=== PATIENT | male | born 1940 | race Caucasian/White ===

== ENCOUNTER 2018-06-17 21:31 | Emergency (ER) | payer MEDICARE, OTHER, SELFPAY ==
[2018-06-17 22:01] VITALS: BP 135/76; PULSE 93; RESP 20; TEMP 36.8; O2SAT 95; BMI 30.1
--- NOTE | 2018-06-17 22:07 | DI.CT.S_ITS ---
PROCEDURE: CT ABDOMEN PELVIS W CON INDICATIONS: Left upper/lower quad pain, started 24 hours ago. ? fever TECHNIQUE: After the administration of intravenous contrast, 5 mm thick sections acquired from the diaphragm to the symphysis. 5 mm coronal and sagittal reformats were acquired. For radiation dose reduction, the following was used: automated exposure control, adjustment of mA and/or kV according to patient size. COMPARISON: None. FINDINGS: Image quality: Excellent. ABDOMEN: Lung bases: There is a calcified granuloma in the right lower lobe. Bibasilar atelectasis. Heart size is normal. There is a moderate-sized hiatal hernia. Solid organs: Liver is normal in size and enhancement. Gallbladder contains multiple gallstones. Biliary system is non dilated. Pancreas enhances normally. Spleen is normal in size and enhancement. No adrenal nodules. Kidneys demonstrate normal size and enhancement, without hydronephrosis. Peritoneum and bowel: There is a thickwalled cavity in the left upper quadrant adjacent to a loop of jejunum suspicious for the small bowel diverticulum (series 2 image 44). Mild dilation of small bowel loops in the left upper quadrant. Distally, small bowel loops are normal in caliber. Colon loops demonstrate normal wall thickness and caliber with abundant stool and bowel gas. No free fluid or air. Nodes and vessels: No retroperitoneal or mesenteric adenopathy by size criteria. Aorta and inferior vena cava are normal in size. Miscellaneous: A small fat containing ventral hernia is noted. PELVIS: Genitourinary: Bladder wall thickness is normal. Prostate is enlarged. Miscellaneous: No inguinal hernias or adenopathy. Bones: No suspicious bony lesions. No vertebral body compression fractures. IMPRESSION: 1. A thickwalled cavity is seen in the left upper quadrant adjacent to a loop of jejunum suspicious for a small bowel diverticulum. A differential diagnosis is contained perforation from perforated diverticulum but a neoplastic process is not excluded. No free fluid or free air. Small bowel loops in the left upper quadrant are slightly prominent and distal small bowel are normal in caliber, suggesting the possibility of partial or early small bowel obstruction. Recommend clinical correlation. 2. Cholelithiasis. 3. A moderate size hiatal hernia. 4. Enlarged prostate. 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 Dictated by: Sebas Swartz M.D. on 06/18/2018 at 7:42 Transcribed by: ROMA on 06/18/2018 at 7:54 Approved by: Sebas Swartz M.D. on 06/18/2018 at 8:46
[2018-06-17 22:14] LABS: Add Manual Diff / Slide Review NO; Basophils Percent Auto 0.7 % (0-2); Eosinophils Percent Auto 1.1 % (2-4); Hemoglobin 13.4 g/dL (13.5-17.5); Mean Corpuscular HGB Conc 32.6 % (30-36); Mean Corpuscular Hemoglobin 27.8 PG (26-34); Mean Corpuscular Volume 85.4 fL (80-100); Monocytes Percent Auto 3.5 % (3-14); Neutrophils Absolute Auto 14600 /uL (3000-5900); Neutrophils Percent Auto 90.7 % (50-75); Platelet Count 421 X10^3/uL (150-400); Red Blood Cell Count 4.81 X10^6/uL (4.5-5.9); Red Cell Distribution Width 20.4 % (11.6-14.8); White Blood Cell Count 16.1 X10^3/uL (4.5-11.0)
[2018-06-17 22:18] LABS: Alanine Aminotransferase 22 IU/L (21-72); Albumin 4.2 g/dL (3.5-5.0); Albumin Globulin Ratio 1.8 (1.0-2.8); Alkaline Phosphatase 47 U/L (38-126); Aspartate Aminotransferase 33 IU/L (17-59); BUN Creatinine Ratio 20.8 (6-22); Bilirubin Total 1.2 mg/dL (0.2-1.3); Blood Urea Nitrogen 25 mg/dL (9-20); Carbon Dioxide 24 mmol/L (22-32); Chloride 105 mmol/L (98-107); Estimated Glomerular Filt Rate 58.9 mL/min (>60); Globulin 2.4 g/dL (1.7-4.1); Glucose 128 mg/dL (80-110); HEMOLYSIS 16 (0-50); Lipase 27 U/L (23-300); Potassium 4.1 mmol/L (3.4-5.1); Sodium 140 mmol/L (137-145); Total Protein 6.6 g/dL (6.3-8.2)
--- NOTE | 2018-06-17 22:24 | ED_ITS ---
HPI - Abdominal Pain General Chief Complaint: Abdominal Pain Stated Complaint: ABD PAIN FEVER 100.5 Time Seen by Provider: 06/17/18 21:54 Source: patient and family ( ) Mode of arrival: ambulatory Limitations: no limitations History of Present Illness HPI narrative: this is a 78-year-old male comes to the emergency department with complaint of Abdominal pain. Patient states that started yesterday about 24 hr ago. He states it started about very heavy salt move loopy get up on its side. He states that movement is not worse with pain, sitting upper flexing does not seem to make a or side bending does not seem to make much difference. He states that pain is mostly on the left side. He has had no vomiting, did temperature a 100.5? at home although here was normal, no dysuria , no urgency. No diarrhea or constipation. He has not had similar symptoms in the past. has a history of mitral valve replacement, the takes medication for blood pressure and dyslipidemia. He drinks 2-3 alcoholic drinks daily. Related Data Previous Rx's Medication Instructions Recorded amoxicillin-pot clavulanate 1 tab PO Q12H #20 tab 06/18/18 [Augmentin] Allergies Allergy/AdvReac Type Severity Reaction Status Date / Time No Known Drug Allergies Allergy Verified 06/17/18 22:07 Review of Systems Review of Systems All systems reviewed & are unremarkable except as noted in HPI and below Constitutional Denies anorexia, Denies chills, Denies fever(s) and Denies malaise Cardiovascular Denies chest pain and Denies dyspnea Respiratory Denies dyspnea Gastrointestinal Gastrointestinal: Reports abdominal pain, Denies melena, Denies hematochezia, Denies change in bowel habits, Denies constipation, Denies diarrhea, Denies nausea and Denies vomiting Genitourinary Denies hematuria, Denies difficulty urinating, Denies flank pain, Denies testicular pain, Denies urinary frequency, Denies urinary incontinence and Denies urinary urgency Musculoskeletal Denies back pain PFSH Medical History Dyslipidemia (Acute) Hypertension (Acute) Surgical History H/O mitral valve repair (Acute) Social History Smoking Status: Never smoker Exam Narrative Exam Narrative: GENERAL: Alert and oriented x three, well-nourished, well- appearing male in mild distress. HEENT: Head normocephalic, atraumatic, EOMI, pupils reactive, face symmetric, moist mucous membranes NECK: Supple, full range of motion CARDIOVASCULAR: Regular rate and rhythm without murmurs, rubs or gallops. RESPIRATORY: Breath sounds equal bilaterally, no wheezes rales or rhonchi. ABDOMEN: Soft, Mild left upper quadrant and very mild left lower quadrant tenderness. Normoactive bowel sounds all 4 quadrants. No guarding or rebound, rigidity, no mass : No CVA tenderness EXTREMITIES: Normal range of motion, no clubbing or edema. Neurovascularly intact NEUROLOGICAL: Cranial nerves II through XII grossly intact. Moving all extremities SKIN: Warm, dry, no petechiae, no rashes or lesions. Initial Vital Signs Initial Vital Signs: Vital Signs Temperature 98.3 F 06/17/18 22:01 Pulse Rate 93 H 06/17/18 22:01 Respiratory Rate 20 06/17/18 22:01 Blood Pressure 135/76 06/17/18 22:01 Pulse Oximetry 95 06/17/18 22:01 Course Orders Ordered: ED Orders 06/17/18 21:50 Complete Blood Count AUTO DIFF Stat Comprehensive Metabolic Panel Stat Lipase Stat 06/17/18 22:07 CT abdomen pelvis w con Stat Discontinued Medications Amoxicillin/Clavulanate Potassium (Augmentin 875-125 Mg) 1 tab PO NOW ONE Stop: 06/18/18 00:06 Last Admin: 06/18/18 00:10 Dose: 1 tab Sodium Chloride (Normal Saline 0.9%) 1,000 mls @ 150 mls/hr IV CONT KASSI Last Infusion: 06/18/18 00:10 Dose: 0 mls/hr Admin: 06/17/18 22:53 Dose: 150 mls/hr Morphine Sulfate (Morphine) 2 mg IV NOW ONE Stop: 06/17/18 21:52 Last Admin: 06/17/18 22:29 Dose: Vital Signs - 8 hr 06/17/18 22:01 06/18/18 00:31 Temperature 98.3 F Pulse Rate 93 H 89 Respiratory Rate 20 18 Blood Pressure 135/76 126/61 Pulse Oximetry 95 98 MDM - Abdominal Pain Lab Data Result diagrams: 06/17/18 21:50 06/17/18 21:50 Lab Results 06/17/18 06/17/18 Range/Units 21:50 21:50 WBC 16.1 H (4.5-11.0) X10^3/uL RBC 4.81 (4.5-5.9) X10^6/uL Hgb 13.4 L (13.5-17.5) g/dL Hct 41.0 (41-53) % MCV 85.4 (80-100) fL MCH 27.8 (26-34) PG MCHC 32.6 (30-36) % RDW 20.4 H (11.6-14.8) % Plt Count 421 H (150-400) X10^3/uL Neut % (Auto) 90.7 H (50-75) % Lymph % (Auto) 4.0 L (25-40) % Jerome % (Auto) 3.5 (3-14) % Eos % (Auto) 1.1 L (2-4) % Baso % (Auto) 0.7 (0-2) % Neut # (Auto) 14956 H (6168-4157) /uL RBC Morphology See below Anisocytosis 3+ H Sodium 140 (137-145) mmol/L Potassium 4.1 (3.4-5.1) mmol/L Chloride 105 (98-107) mmol/L Carbon Dioxide 24 (22-32) mmol/L BUN 25 H (9-20) mg/dL Creatinine 1.20 (0.66-1.25) mg/dL Estimated GFR 58.9 L (>60) mL/min BUN/Creatinine Ratio 20.8 (6-22) Glucose 128 H (80-110) mg/dL Calcium 9.0 (8.4-10.2) mg/dL Total Bilirubin 1.2 (0.2-1.3) mg/dL AST 33 (17-59) IU/L ALT 22 (21-72) IU/L Alkaline Phosphatase 47 (38-126) U/L Total Protein 6.6 (6.3-8.2) g/dL Albumin 4.2 (3.5-5.0) g/dL Globulin 2.4 (1.7-4.1) g/dL Albumin/Globulin Ratio 1.8 (1.0-2.8) Lipase 27 (23-300) U/L Imaging Data CT scan - abdomen: Radiologist's impression: Dilated small bowel loops in left abdomen leading to transition point of wall thickening and luminal narrowing of small bowel in the lower left abdomen. As some feculent contents and small bowel which may be a consequence of point of obstruction however there is wall thickening and martha enteric stranding. This may represent inflamed small bowel diverticulum. Findings could be secondary to enteritis. Neoplasm not excluded. Follow-up suggested. Cholelithiasis without findings to suggest cholecystitis. Hiatal hernia. Age-related large amount of prostate gland. Anterior abdominal wall hernia containing only fat. MDM Narrative Medical decision making narrative: discussed with patient plan for imaging he is tender in the left upper little bit the left lower quadrant. He could potentially have a diverticulitis or other infectious cause. plan to check urine for infection although he has not been having any urinary symptoms. Patient's white count is elevated at 16 there is an area that may be an inflamed small bowel diverticulum versus enteritis, there is some question about of joint decreasing caliber of the small bowel but patient clinically is not having any signs or symptoms of bowel obstruction or partial bowel obstruction. Discussed with patient we will treat similar to a diverticulitis, we did also discuss the need follow-up to rule out other causes such as neoplasm. Discharge Plan Departure Patient Disposition: Home Clinical Impression: Inflammation of small intestine Discharge Date/Time: 06/18/18 00:31 Interventions: ED Discharge Assessment Last Done: 06/18/18 00:31 Instructions: Diverticulitis Activity Restrictions/Additional Instructions: Your imaging today shows some changes of the abdomen that are similar to diverticulitis although this is in the small and not the large bowel, there are also changes of questionable bowel obstruction but clinically you do not have an obstruction. There is also changes with your lab work that supports infection. Take antibiotics until they are completely gone. Call your primary care physician to set up follow-up this week for recheck. Discussed her CT findings they way wish to continue with further imaging to evaluate other causes. Return to the emergency department for persistent fevers, vomiting, if you are not having any bowel movements and not passing gas, increasing or new abdominal pain or other new or concerning symptoms. Prescriptions: New amoxicillin-pot clavulanate [Augmentin] 875-125 mg tablet 1 tab PO Q12H Qty: 20 RF: 0
[2018-06-17] MEDS: SODIUM CHLORIDE 0.9% 1,000 ML 150 ML IV (22:53)
[2018-06-17 23:29] LABS: Anisocytosis 3+
[2018-06-18] MEDS: AMOXICILLIN/CLAV 875/125 MG 1 TAB PO (00:10)
[2018-06-18 00:31] VITALS: BP 126/61; PULSE 89; RESP 18; O2SAT 98
== END 2018-06-18 00:31 | disposition home or self-care (01) ==
PROVIDERS: Emergency Provider Emergency Medicine
DX: K52.9 Noninfective gastroenteritis and colitis, unspecified (principal)
CPT/HCPCS: 36591; 74177; 80053; 83690; 85025; 96360; 99283; 99285; Q9967

== ENCOUNTER → 2018-07-08 09:34 | Outpatient (CLI) | payer MEDICARE, OTHER, SELFPAY ==
[2018-07-08 09:49] LABS: Platelet Count 405 X10^3/uL (150-400)
[2018-07-08 10:38] LABS: Erythrocyte Sedimentation Rate 7 MM/HR (0-15)
[2018-07-08 10:40] LABS: C-Reactive Protein Quant 0.5 mg/dL (<1.0)
== END ==
PROVIDERS: PCP Internal Medicine; Visit Provider Ophthalmology
DX: H53.122 Transient visual loss, left eye (principal)
CPT/HCPCS: 36415; 85049; 85651; 86140

== ENCOUNTER → 2018-07-11 14:37 | Outpatient (CLI) | payer MEDICARE, OTHER, SELFPAY ==
--- NOTE | 2018-07-11 | DI.US.S_ITS ---
PROCEDURE: US CAROTID DOPPLER BI INDICATIONS: TRANSIENT VISION LOSS TECHNIQUE: Color and pulse Doppler interrogation was performed of both carotid systems, with image documentation and velocity measurements. COMPARISON: None. FINDINGS: Stenosis calculations are based on SRU (Society of Radiologists in Ultrasound) criteria. Right side: Brachial blood pressure: 102/61 mm Hg. Common carotid artery peak systolic velocity: 89 cm/sec. Internal carotid artery peak systolic velocity: 95 cm/sec. Internal carotid artery end diastolic velocity: 26 cm/sec. External carotid artery peak systolic velocity: 88 cm/sec. ICA/CCA peak systolic ratio: 1.1. Estes scale imaging description: Moderate scattered plaque. Percent internal carotid artery stenosis: Less than 50% stenosis. Vertebral artery: Flow direction is antegrade. Left side: Brachial blood pressure: 109/65 mm Hg. Common carotid artery peak systolic velocity: 91 cm/sec. Internal carotid artery peak systolic velocity: 134 cm/sec. Internal carotid artery end diastolic velocity: 20 cm/sec. External carotid artery peak systolic velocity: 97 cm/sec. ICA/CCA peak systolic ratio: 1.5. Estes scale imaging description: Moderate scattered plaque. Percent internal carotid artery stenosis: 50-69% stenosis. Vertebral artery: Not visualized. IMPRESSION: 1. 50-69% left internal carotid artery stenosis. 2. Less than 50% right internal carotid artery stenosis. Dictated by: Jeffrey Lawler [facility] Interpreted: John Reynolds MD on 07/11/2018 at 16:00 Approved by: John Reynolds M.D. on 07/11/2018 at 16:43
== END ==
PROVIDERS: Family Provider Internal Medicine Cardiovascular Disease; PCP Internal Medicine; Visit Provider Ophthalmology
DX: I65.23 Occlusion and stenosis of bilateral carotid arteries (principal); H53.129 Transient visual loss, unspecified eye
CPT/HCPCS: 93880

== ENCOUNTER → 2018-07-17 07:35 | Outpatient (CLI) | payer MEDICARE, OTHER, SELFPAY ==
[2018-07-17 09:34] LABS: Alanine Aminotransferase 22 IU/L (21-72); Aspartate Aminotransferase 35 IU/L (17-59); BUN Creatinine Ratio 17.7 (6-22); Blood Urea Nitrogen 23 mg/dL (9-20); Calcium 9.4 mg/dL (8.4-10.2); Carbon Dioxide 29 mmol/L (22-32); Chloride 102 mmol/L (98-107); Cholesterol 124 mg/dL (140-199); Estimated Glomerular Filt Rate 53.7 mL/min (>60); Glucose 89 mg/dL (80-110); HDL Cholesterol 42 mg/dL (40-60); HEMOLYSIS < 15 (0-50); LDL Cholesterol Calculated 62 mg/dL (<100); Potassium 4.7 mmol/L (3.4-5.1); Sodium 142 mmol/L (137-145); Triglycerides 98 mg/dL (35-150)
== END ==
PROVIDERS: PCP Internal Medicine; Visit Provider Internal Medicine
DX: G45.9 Transient cerebral ischemic attack, unspecified (principal); I10 Essential (primary) hypertension
CPT/HCPCS: 36415; 80048; 80061; 84450; 84460

== ENCOUNTER → 2018-07-24 07:12 | Outpatient (CLI) | payer MEDICARE, OTHER, SELFPAY ==
--- NOTE | 2018-07-24 | DI.MRI.S_ITS ---
PROCEDURE: MR STROKE Pre- and post-contrast brain MRI, non-contrast brain MR angiogram, pre- and postcontrast neck MR angiogram INDICATIONS: Transient cerebral ischemic attack, unspecified TECHNIQUE: Brain: Noncontrast axial T1 spin echo, axial T2 fast spin echo, sagittal and axial FLAIR, coronal T2 fast spin echo, axial gradient echo, axial diffusion and ADC through the brain. After the administration of contrast, axial 3D VIBE of the cranial vasculature and brain. Brain MRA: Non-contrast 3-D time of flight MR angiogram, with multiple lfrnrgu-ccssgqkij-xxyutfocdf (MIP) reformats performed. Neck MRA: Axial and sagittal TruFISP through the neck. Coronal dynamic MR angiogram during administration of contrast in the arterial and venous phases, with 3-dimenstional tvdhoag-qcsxrgkjm-dtjdydshvk (MIP) reformats constructed from subtraction images. COMPARISON: [facility], , CAROTID DOPPLER BI, 07/11/2018, 14:55. FINDINGS: Image quality: Excellent. BRAIN: CSF spaces: Ventricles are normal in size and shape. Basal cisterns are patent. No extra-axial fluid collections. Brain: No intracranial bleeds or mass effects. Estes-white matter interface is normal. There is mild cerebral volume loss. Small foci of T2 hyperintensity in the periventricular and subcortical white matter are compatible with chronic small vessel ischemic changes. Diffusion weighted images show no acute ischemic insults. Brainstem appears normal. Normal intravascular flow voids are present. No abnormal intracranial enhancement. Skull and face: Calvarial marrow signal is normal. Orbits appear normal. Sinuses: Sinuses and mastoids are clear. BRAIN MR ANGIOGRAM: Anterior circulation: Intracranial internal carotid arteries are normal in size and enhancement. The flow within the paired anterior cerebral arteries is normal and symmetric. The flow within the middle cerebral arteries is normal and symmetric. The anterior communicating artery is seen. No stenoses, occlusions, or aneurysms. Posterior circulation: The visualized portions of the vertebral arteries demonstrate normal caliber, and join to form a normal appearing basilar artery. The flow within the posterior cerebral arteries is normal and symmetric. No stenoses, occlusions, or aneurysms. NECK MR ANGIOGRAM: Carotids: Great vessels demonstrate a conventional anatomy as they arise from the aortic arch. The origins of the common carotid arteries appear patent. The calibers and courses of both common carotid arteries are normal. There is approximately 50% stenosis in the proximal left internal cardiac artery just down the bifurcation. Approximately 20-30% stenosis of the right proximal internal carotid artery. The internal carotid arteries demonstrate normal course and caliber. Posterior circulation: The origins of the vertebral arteries appear patent. More superior portions of both vertebral arteries demonstrate normal course and caliber, and join to form a normal appearing basilar artery. Miscellaneous: Subclavian arteries appear patent. Pre-contrast images through the neck show no soft tissue abnormalities. IMPRESSION: BRAIN MRI: 1. No acute intracranial abnormalities. 2. Mild cerebral volume loss and chronic microvascular ischemic changes. BRAIN MR ANGIOGRAM: 1. No high-grade stenosis or occlusion in anterior circulations. 2. No high-grade stenosis or occlusion in posterior circulations. NECK MR ANGIOGRAM: 1. Approximately 50% stenosis of the proximal left internal carotid artery just beyond the carotid bifurcation. 2. Approximately 20-30% stenosis of the proximal right internal carotid artery. 3. No high-grade stenosis or occlusion in cervical vertebral arteries bilaterally. Dictated by: Sebas Swartz M.D. on 07/24/2018 at 11:40 Transcribed by: ROMA on 07/24/2018 at 11:52 Approved by: Sebas Swartz M.D. on 07/26/2018 at 10:49
== END ==
PROVIDERS: Family Provider Internal Medicine Cardiovascular Disease; PCP Internal Medicine; Visit Provider Internal Medicine
DX: G45.9 Transient cerebral ischemic attack, unspecified (principal); I65.23 Occlusion and stenosis of bilateral carotid arteries
CPT/HCPCS: 70553

== ENCOUNTER → 2019-02-13 08:19 | Outpatient (CLI) | payer MEDICARE, OTHER, SELFPAY ==
[2019-02-13 09:16] LABS: Cholesterol 127 mg/dL (140-199); HDL Cholesterol 35 mg/dL (40-60); LDL Cholesterol Calculated 62 mg/dL (<100); Triglycerides 148 mg/dL (35-150)
== END ==
PROVIDERS: Family Provider Internal Medicine; PCP Internal Medicine; Visit Provider Internal Medicine Cardiovascular Disease
DX: E78.5 Hyperlipidemia, unspecified (principal)
CPT/HCPCS: 36415; 80061

== ENCOUNTER → 2019-07-09 10:55 | Outpatient (CLI) | payer MEDICARE, OTHER, SELFPAY ==
[2019-07-09 12:33] LABS: BUN Creatinine Ratio 15.9 (6-22); Blood Urea Nitrogen 27 mg/dL (9-20); Calcium 9.6 mg/dL (8.4-10.2); Carbon Dioxide 28 mmol/L (22-32); Chloride 104 mmol/L (98-107); Estimated Glomerular Filt Rate 39.3 mL/min (>60); Glucose 98 mg/dL (80-110); HEMOLYSIS < 15 (0-50); Potassium 5.3 mmol/L (3.4-5.1); Sodium 140 mmol/L (137-145)
[2019-07-09 13:00] LABS: Prostate Specific Antigen Scrn 2.59 ng/mL (0.1-4.0)
== END ==
PROVIDERS: Family Provider Internal Medicine; PCP Internal Medicine; Visit Provider Internal Medicine
DX: Z12.5 Encounter for screening for malignant neoplasm of prostate (principal); I10 Essential (primary) hypertension
CPT/HCPCS: 36415; 80048; G0103

== ENCOUNTER → 2020-05-11 09:20 | Outpatient (CLI) | payer MEDICARE, OTHER, SELFPAY ==
--- NOTE | 2020-05-11 | DI.US.S_ITS ---
PROCEDURE: US CAROTID DOPPLER BI INDICATIONS: OCCLUSION AND STENOSIS OF BILATERAL CAROTID ARTERIES TECHNIQUE: Color and pulse Doppler interrogation was performed of both carotid systems, with image documentation and velocity measurements. COMPARISON: [facility], US, US CAROTID DOPPLER BI, 07/11/2018, 14:55. [facility], MR, MR STROKE, 07/24/2018, 8:00. FINDINGS: Stenosis calculations are based on SRU (Society of Radiologists in Ultrasound) criteria. The flow velocities and the arterial waveforms are normal within both carotid arterial systems. Atherosclerotic plaque is seen on both sides. The estimated degree of internal carotid artery stenosis is less than 50%. Antegrade flow is confirmed within both vertebral arteries. IMPRESSION: No hemodynamically significant stenosis is seen. The previously seen mild stenosis of the left internal carotid artery is no longer seen by velocity criteria. Atherosclerotic plaque is noted bilaterally. Dictated by: Gasper Ferrera M.D. on 05/11/2020 at 10:00 Approved by: Gasper Ferrera M.D. on 05/11/2020 at 10:01
== END ==
PROVIDERS: Family Provider Internal Medicine; PCP Internal Medicine; Referring Provider Internal Medicine Cardiovascular Disease; Visit Provider Internal Medicine Cardiovascular Disease
DX: I65.23 Occlusion and stenosis of bilateral carotid arteries (principal)
CPT/HCPCS: 93880

== ENCOUNTER → 2020-06-25 08:45 | Outpatient (CLI) | payer MEDICARE, OTHER, SELFPAY ==
[2020-06-25 10:27] LABS: Alanine Aminotransferase 10 IU/L (<50); Albumin 3.7 g/dL (3.5-5.0); Albumin Globulin Ratio 1.5 (1.0-2.8); Alkaline Phosphatase 58 U/L (38-126); Aspartate Aminotransferase 33 IU/L (17-59); BUN Creatinine Ratio 16.9 (6-22); Bilirubin Total 1.2 mg/dL (0.2-1.3); Blood Urea Nitrogen 24 mg/dL (9-20); Calcium 9.1 mg/dL (8.4-10.2); Carbon Dioxide 30 mmol/L (22-32); Chloride 104 mmol/L (98-107); Cholesterol 105 mg/dL (140-199); Estimated Glomerular Filt Rate 48.2 mL/min (>60); Globulin 2.4 g/dL (1.7-4.1); Glucose 100 mg/dL (80-110); HDL Cholesterol 34 mg/dL (40-60); HEMOLYSIS < 15 (0-50); LDL Cholesterol Calculated 50 mg/dL (<100); Potassium 4.5 mmol/L (3.4-5.1); Sodium 136 mmol/L (137-145); Total Protein 6.1 g/dL (6.3-8.2); Triglycerides 105 mg/dL (35-150)
[2020-06-26 07:49] LABS: PSA Free % 30.5 % (.)
== END ==
PROVIDERS: Family Provider Internal Medicine; PCP Internal Medicine; Referring Provider Internal Medicine; Visit Provider Internal Medicine
DX: I10 Essential (primary) hypertension (principal); E78.5 Hyperlipidemia, unspecified; Z12.5 Encounter for screening for malignant neoplasm of prostate
CPT/HCPCS: 36415; 80053; 80061; 84153; 84154

== ENCOUNTER → 2021-11-14 09:44 | Outpatient (CLI) | payer MEDICARE, OTHER, SELFPAY ==
[2021-11-14 12:43] LABS: COVID19 -Nasal RAPID Negative (Negative)
== END ==
PROVIDERS: Family Provider Internal Medicine; PCP Internal Medicine; Visit Provider Family Medicine Sleep Medicine
DX: Z20.822 Contact with and (suspected) exposure to COVID-19 (principal)
CPT/HCPCS: 87635; C9803

== ENCOUNTER 2021-11-15 09:27 | Day surgery (SDC) | payer MEDICARE, OTHER, SELFPAY ==
[2021-11-15] MEDS: PROPARACAINE 0.5% OPHTH SOL 2 DROPS EYE-OP (10:05)
[2021-11-15 10:11] VITALS: BP 136/86; PULSE 60; RESP 18; TEMP 36.4; O2SAT 100; BMI 28.7
[2021-11-15] MEDS: CATARACT EYE COMPOUND (10 DROPS/SYRINGE) 3 DROPS EYE-OP (10:15)
--- NOTE | 2021-11-15 10:45 | PM.PREOP ---
Pre-operative Note Interval Note History & Physical reviewed/Exam performed by Physician: Yes Changes to H&P: No
--- NOTE | 2021-11-15 10:45 | PM.OP.1 ---
Operative Date/Time/Diagnoses Pre-op diagnosis: Nuclear cataract right eye Procedure & Clinicians Procedure: Cataract Surgery Same procedure as scheduled: Yes Surgeon: Omi Goodrich Anesthesia Type: MAC +/- and Sedation Operative Notes Procedure in detail: Patient brought to the operating suite. Tetracaine drops placed in the right eye. Patient was prepped and draped in sterile manner. Wire lid speculum was placed in the eye. Betadine drops were placed on the eye. This was irrigated. Lidocaine jelly was placed on the eye. A paracentesis port was created with a side-port blade. 0.1 mL 1% preservative free lidocaine was injected into the anterior chamber. The anterior chamber was deepened with viscoelastic. 2.6 mm keratome was used to create a temporal clear corneal incision. Cystotome and Utrata forceps were used to create continuous tear capsulorrhexis. Balanced salt solution was used to hydro dissect the nucleus. The phacoemulsification handpiece was inserted and the nucleus was removed using the stop and chop technique. The irrigation aspiration handpiece was inserted and the remaining cortex was removed. Anterior chamber was deepened with viscoelastic. An Haider DIB00 intraocular lens with a power of 21.5 was injected into the capsular bag. Irrigation aspiration handpiece was inserted and the remaining viscoelastic was removed. Incision was hydrated with balanced salt solution and found to be leak free with pressure with Weck-Stephanie sponges. 0.1 mL Vigamox injected anterior chamber. 0.3 mL Kenalog 10 mg was injected subconjunctivally. Lid speculum was removed. The patient left the operating room in excellent condition. Complications: none Post-operative Condition: stable Disposition: same day surgery
--- NOTE | 2021-11-15 11:00 | SUR.OPER ---
Supine on eye stretcher, head on extension cradle secured with tape. Arms tucked at sides with blanket. Pillow under knees.
[2021-11-15] MEDS: LIDOCAINE 2% (GLYDO) 6 ML GEL TOP (11:08)
[2021-11-15] MEDS: PHENYLEPHRINE/LIDOCAINE VIAL (OR) 0.2 ML EYE-OP (11:08)
[2021-11-15] MEDS: MOXIFLOXACIN INJ 4 MG/0.8 ML VIAL 0.5 MG EYE-OP (11:08)
[2021-11-15] MEDS: HYALURONATE SODIUM 30 MG-10 MG/ML SYRINGES 1 BOX INTRAOCULA (11:08)
[2021-11-15] MEDS: TETRACAINE 0.5% OPHTH DROPS 4 ML 2 DROPS EYE-OP (11:08)
[2021-11-15] MEDS: BALANCED SALT IRRIG SOLN NO.2 500 ML, EPINEPHrine 1 MG IRR (11:09)
[2021-11-15] MEDS: TRIAMCINOLONE 50 MG/5 ML VIAL INJ (11:09)
[2021-11-15 11:29] VITALS: BP 97/59; PULSE 56; RESP 16; TEMP 36.3; O2SAT 98
== END 2021-11-15 11:35 | disposition home or self-care (01) ==
PROVIDERS: Family Provider Internal Medicine; PCP Internal Medicine; Referring Provider Ophthalmology; Visit Provider Ophthalmology
PROC: (CPT 66984; principal; 2021-11-15 10:45)
DX: H25.11 Age-related nuclear cataract, right eye (principal); I10 Essential (primary) hypertension; I25.10 Atherosclerotic heart disease of native coronary artery without angina pectoris; E66.9 Obesity, unspecified
CPT/HCPCS: 66984; J0171; J2250; J3301

== ENCOUNTER → 2022-02-08 14:10 | Outpatient (CLI) | payer MEDICARE, OTHER, SELFPAY ==
[2022-02-08 14:58] LABS: Add Manual Diff / Slide Review NO; Basophils Absolute Auto 100 /uL (0-100); Basophils Percent Auto 1.3 % (0-2); Eosinophils Absolute Auto 200 /uL (0-450); Eosinophils Percent Auto 2.5 % (2-4); Hematocrit 31.7 % (41-53); Hemoglobin 10.6 g/dL (13.5-17.5); Lymphocytes Absolute Auto 700 /uL (1100-4500); Lymphocytes Percent Auto 8.6 % (25-40); Mean Corpuscular HGB Conc 33.6 % (30-36); Mean Corpuscular Hemoglobin 28.7 PG (26-34); Mean Corpuscular Volume 85.3 fL (80-100); Monocytes Absolute Auto 400 /uL (0-900); Monocytes Percent Auto 4.7 % (3-14); Neutrophils Absolute Auto 6300 /uL (1500-7000); Neutrophils Percent Auto 82.9 % (50-75); Platelet Count 348 X10^3/uL (150-400); Red Blood Cell Count 3.71 X10^6/uL (4.5-5.9); Red Cell Distribution Width 22.5 % (11.6-14.8); White Blood Cell Count 7.6 X10^3/uL (4.5-11.0)
[2022-02-08 15:16] LABS: Alanine Aminotransferase 11 IU/L (<50); Albumin 4.1 g/dL (3.5-5.0); Albumin Globulin Ratio 2.1 (1.0-2.8); Alkaline Phosphatase 63 U/L (38-126); Aspartate Aminotransferase 43 IU/L (17-59); BUN Creatinine Ratio 15.7 (6-22); Bilirubin Total 1.1 mg/dL (0.2-1.3); Blood Urea Nitrogen 26 mg/dL (9-20); Calcium 8.8 mg/dL (8.4-10.2); Carbon Dioxide 28 mmol/L (22-32); Chloride 105 mmol/L (98-107); Estimated Glomerular Filt Rate 41 mL/min (>60); Glucose 96 mg/dL (80-110); HEMOLYSIS < 15 (0-50); Potassium 4.8 mmol/L (3.4-5.1); Sodium 138 mmol/L (137-145); Total Protein 6.1 g/dL (6.3-8.2)
[2022-02-08 15:25] LABS: Poikilocytosis 1+
[2022-02-08 15:29] LABS: Anisocytosis 2+; Schistocytes 2+
[2022-02-08 15:54] LABS: Creatinine Urine Random 73.6 mg/dL; Protein (Total) Urine Random 9 mg/dL (0-12); Protein Creatinine Ratio Urine 0.12 GRAM/24H
[2022-02-08 16:23] LABS: Appearance Urine UA CLEAR; Bilirubin Urine UA NEGATIVE (NEGATIVE); Color Urine UA YELLOW; Glucose Urine UA NEGATIVE (Negative); Ketones Urine UA NEGATIVE (NEGATIVE); Leukocyte Esterase Urine UA NEGATIVE (NEGATIVE); Nitrite Urine UA NEGATIVE (Negative); Occult Blood Urine UA NEGATIVE (Negative); Protein Urine UA NEGATIVE (Negative); Urobilinogen Urine UA 0.2 E.U./dL (0.2); pH Urine UA 5.5 (4.5-8.0)
[2022-02-08 16:47] LABS: Amorphous Sediment Urine 1+; Bacteria Urine None Seen; Culture Indicated Urine Cult Not Indicated; RBC Urine None Seen (0-5/HPF); Squamous Epithelial Cell Urine 0-1 /HPF (0-5/HPF); WBC Urine 0-1/HPF (0-5/HPF)
== END ==
PROVIDERS: Family Provider Internal Medicine; PCP Internal Medicine; Referring Provider Internal Medicine Nephrology; Visit Provider Internal Medicine Nephrology
DX: N18.31 Chronic kidney disease, stage 3a (principal)
CPT/HCPCS: 36415; 80053; 81001; 82570; 84156; 85025

== ENCOUNTER → 2022-06-08 10:29 | Outpatient (CLI) | payer MEDICARE, OTHER, SELFPAY ==
[2022-06-08 11:41] LABS: BUN Creatinine Ratio 17.3 (6-22); Blood Urea Nitrogen 26 mg/dL (9-20); Calcium 8.8 mg/dL (8.4-10.2); Carbon Dioxide 29 mmol/L (22-32); Chloride 105 mmol/L (98-107); Estimated Glomerular Filt Rate 47 mL/min (>60); Glucose 95 mg/dL (80-110); HEMOLYSIS 16 (0-50); Potassium 4.7 mmol/L (3.4-5.1); Sodium 138 mmol/L (137-145)
== END ==
PROVIDERS: PCP Internal Medicine; Referring Provider Internal Medicine Cardiovascular Disease; Visit Provider Internal Medicine Cardiovascular Disease
DX: R25.2 Cramp and spasm (principal)
CPT/HCPCS: 36415; 80048; 83735

== ENCOUNTER → 2022-07-07 07:42 | Outpatient (CLI) | payer MEDICARE, OTHER, SELFPAY ==
--- NOTE | 2022-07-07 | DI.ECHO.S_ITS ---
[facility] +---------+ : : [address] [place] : : : : [id number] : : : : Phone: [phone]+ Echocardiogram Report + + :Name: DEMETRICE DUMONT Study Date: 07/07/2022 Height: 72 in : :[facility] ReadingLocation: Weight: 212 lb : : Gender: Male BSA: 2.2 m2 : :: 1940 Age: 82 yrs BP: 142/76 mmHg: :Reason For Study: Mitral Valve- Regurgitation : :Ordering Physician: JOSH, : :JR Performed By: Wesley Neri : :Referring: JR MORENO : + + Interpretation Summary The left ventricle is mildly dilated. The ejection fraction is estimated to be 55-60%. Diastolic parameters suggest a pseudonormalization pattern, consistent with probable elevated filling pressures. No significant change in systolic or diastolic function from the previous study. The right ventricle is at the upper limits of normal in size. The right ventricular systolic function is normal. The mitral valve has been surgically repaired and an annuloplasty ring sewn in place. There is moderate mitral regurgitation. Compared to the prior echo study, there has been no change in the severity of mitral regurgitation. The IVC is of normal diameter and collapses greater than 50% with a sniff. This suggests a low right atrial pressure of 3 mm Hg. Procedure: A two-dimensional transthoracic echocardiogram with color flow and Doppler was performed. The study quality was technically adequate. Comparison is made with the echocardiogram of 03/17/2021. The patient was in normal sinus rhythm during the exam. Left Ventricle: The left ventricle is mildly dilated. Proximal septal thickening is noted. There is no echo evidence for significant left ventricular outflow tract obstruction. There is no thrombus. Left ventricular systolic function is normal. The ejection fraction is estimated to be 55-60%. There are no focal wall motion abnormalities. Diastolic parameters suggest a pseudonormalization pattern, consistent with probable elevated filling pressures. Right Ventricle: The right ventricle is at the upper limits of normal in size. The right ventricular systolic function is normal. Atria: Both atria are severely dilated. There has been no significant change since the previous study. The interatrial septum grossly appears intact with no obvious evidence for an atrial septal defect. Mitral Valve: An annuloplasty ring is noted in the mitral position. The mitral valve has been surgically repaired and an annuloplasty ring sewn in place. There is moderate mitral regurgitation. Compared to the prior echo study, there has been no change in the severity of mitral regurgitation. Aortic Valve: The aortic valve is trileaflet. The aortic valve is slightly calcified. There is no aortic valve stenosis. There is trace aortic regurgitation. Tricuspid Valve: The tricuspid valve is normal. There is mild tricuspid regurgitation. Pulmonary artery pressures cannot be estimated because of the lack of a measurable TR jet velocity. Compared to the prior echo exam, there has been no change in TR severity. Pulmonic Valve: The pulmonic valve is not well seen, but is grossly normal. There is mild pulmonic regurgitation. Great Vessels: The aortic root is normal size. The dimensions of the ascending aorta are normal. The IVC is of normal diameter and collapses greater than 50% with a sniff. This suggests a low right atrial pressure of 3 mm Hg. Pericardium/ Pleura There is no pericardial effusion. There is no pleural effusion. MMode/2D Measurements & Calculations LVIDd: 6.1 cm LVOT diam: 2.4 cm LVIDs: 4.0 cm Ao root diam: 3.6 cm FS: 34.8 % asc Aorta Diam: 3.2 cm IVSd: 1.1 cm LVPWd: 0.97 cm LV carrizales. diameter/BSA (cm/m^2): 2.8 LV sys. diameter/BSA (cm/m^2): 1.8 LA A2 area: 26.1 cm2 RA long axis: 6.5 cm LA A4 area: 32.9 cm2 RA area: 25.3 cm2 LA length (vol): 6.7 cm RA vol: 83.4 ml LA vol: 109.3 ml RA : 38.2 ml/m2 LA vol index: 50.1 ml/m2 TAPSE: 2.3 cm LVAd ap4: 38.9 cm2 LVAs ap4: 22.7 cm2 LVLs ap4: 7.8 cm LVAd ap2: 29.7 cm2 LVLd ap2: 8.5 cm Doppler Measurements & Calculations Ao V2 max: 151.9 cm/sec LVOT Max Brooks: 94.2 cm/sec Ao V2 mean: 108.9 cm/sec LV V1 max P.6 mmHg Ao max P.2 mmHg LV V1 VTI: 20.8 cm Ao mean P.2 mmHg LUZ(I,D): 3.1 cm2 Ao V2 VTI: 30.9 cm ULZ(V,D): 2.9 cm2 sev ratio: 0.67 LUZ indexed to BSA (cm^2/m^2): 1.4 MV E max brooks: 117.2 cm/sec SV(LVOT): 96.4 ml MV A max brooks: 88.4 cm/sec MV E/A: 1.3 Med Peak E' Brooks: 4.2 cm/sec E/E' med: 27.7 Lat Peak E' Brooks: 7.4 cm/sec E/E' lat: 15.9 E/e' average: 21.8 MV dec time: 0.20 sec Reading Physician:03:56 PM
== END ==
PROVIDERS: PCP Internal Medicine; Referring Provider Internal Medicine Cardiovascular Disease; Visit Provider Internal Medicine Cardiovascular Disease
DX: I08.1 Rheumatic disorders of both mitral and tricuspid valves (principal); Z98.890 Other specified postprocedural states
CPT/HCPCS: 93306

== ENCOUNTER → 2022-08-15 10:08 | Outpatient (CLI) | payer MEDICARE, OTHER, SELFPAY ==
[2022-08-15 12:15] LABS: BUN Creatinine Ratio 15.8 (6-22); Blood Urea Nitrogen 24 mg/dL (9-20); Calcium 8.9 mg/dL (8.4-10.2); Carbon Dioxide 27 mmol/L (22-32); Chloride 105 mmol/L (98-107); Estimated Glomerular Filt Rate 46 mL/min (>60); Glucose 96 mg/dL (80-110); HEMOLYSIS < 15 (0-50); Sodium 138 mmol/L (137-145)
[2022-08-15 12:17] LABS: Hematocrit 33.6 % (41-53); Hemoglobin 10.9 g/dL (13.5-17.5)
== END ==
PROVIDERS: PCP Internal Medicine; Referring Provider Internal Medicine Nephrology; Visit Provider Internal Medicine Nephrology
DX: N18.31 Chronic kidney disease, stage 3a (principal)
CPT/HCPCS: 36415; 80048; 85014; 85018

== ENCOUNTER → 2023-03-01 08:56 | Outpatient (CLI) | payer MEDICARE, OTHER, SELFPAY ==
[2023-03-01 11:12] LABS: HEMOLYSIS < 15 (0-50); Iron 61 ug/dL (49-181)
[2023-03-01 11:22] LABS: Percent Iron Saturation 20 % (20-50); Total Iron Binding Capacity 312 ug/dL (261-462); Transferrin 209 mg/dL (206-381)
[2023-03-01 11:48] LABS: Ferritin 39 ng/mL (18-464)
== END ==
PROVIDERS: PCP Internal Medicine; Referring Provider Internal Medicine Nephrology; Visit Provider Internal Medicine Nephrology
DX: N18.31 Chronic kidney disease, stage 3a (principal); N18.32 Chronic kidney disease, stage 3b; D63.1 Anemia in chronic kidney disease
CPT/HCPCS: 36415; 82728; 83540; 83550

== ENCOUNTER → 2023-03-12 14:15 | Outpatient (CLI) | payer MEDICARE, OTHER, SELFPAY ==
[2023-03-12 15:34] LABS: Hematocrit 31.2 % (41-53); Hemoglobin 10.5 g/dL (13.5-17.5)
[2023-03-12 15:37] LABS: BUN Creatinine Ratio 15.5 (6-22); Blood Urea Nitrogen 24 mg/dL (9-20); Calcium 8.6 mg/dL (8.4-10.2); Carbon Dioxide 28 mmol/L (22-32); Chloride 104 mmol/L (98-107); Estimated Glomerular Filt Rate 45 mL/min (>60); Glucose 103 mg/dL (80-110); HEMOLYSIS < 15 (0-50); Potassium 4.6 mmol/L (3.4-5.1); Sodium 138 mmol/L (137-145)
== END ==
PROVIDERS: PCP Internal Medicine; Referring Provider Internal Medicine Nephrology; Visit Provider Internal Medicine Nephrology
DX: N18.31 Chronic kidney disease, stage 3a (principal); N18.32 Chronic kidney disease, stage 3b; D63.1 Anemia in chronic kidney disease
CPT/HCPCS: 36415; 80048; 85014; 85018

== ENCOUNTER → 2023-07-06 09:40 | Outpatient (CLI) | payer MEDICARE, OTHER, SELFPAY ==
[2023-07-06 11:13] LABS: Add Manual Diff / Slide Review NO; Basophils Absolute Auto 100 /uL (0-100); Basophils Percent Auto 1.1 % (0-2); Eosinophils Absolute Auto 200 /uL (0-450); Eosinophils Percent Auto 2.4 % (2-4); Hematocrit 30.5 % (41-53); Hemoglobin 10.1 g/dL (13.5-17.5); Lymphocytes Absolute Auto 700 /uL (1100-4500); Lymphocytes Percent Auto 9.5 % (25-40); Mean Corpuscular Hemoglobin 29.4 PG (26-34); Mean Corpuscular Volume 88.9 fL (80-100); Monocytes Absolute Auto 300 /uL (0-900); Monocytes Percent Auto 4.1 % (3-14); Neutrophils Absolute Auto 5800 /uL (1500-7000); Neutrophils Percent Auto 82.9 % (50-75); Platelet Count 268 X10^3/uL (150-400); Red Blood Cell Count 3.43 X10^6/uL (4.5-5.9)
[2023-07-06 11:25] LABS: Anisocytosis 3+; Schistocytes 1+
[2023-07-06 11:31] LABS: BUN Creatinine Ratio 19.5 (6-22); Blood Urea Nitrogen 29 mg/dL (9-20); Calcium 9.3 mg/dL (8.4-10.2); Carbon Dioxide 28 mmol/L (22-32); Chloride 104 mmol/L (98-107); Estimated Glomerular Filt Rate 47 mL/min (>60); Glucose 89 mg/dL (80-110); HEMOLYSIS < 15 (0-50); Potassium 4.5 mmol/L (3.4-5.1); Sodium 136 mmol/L (137-145)
== END ==
PROVIDERS: PCP Internal Medicine; Referring Provider Internal Medicine Cardiovascular Disease; Visit Provider Internal Medicine Cardiovascular Disease
DX: I44.2 Atrioventricular block, complete (principal)
CPT/HCPCS: 36415; 80048; 85025

== ENCOUNTER 2023-07-30 09:47 | Emergency (ER) | payer MEDICARE, OTHER, SELFPAY ==
[2023-07-30] VITALS (15 sets, daily range): BP systolic 125–172; BP diastolic 59–94; PULSE 61–80; RESP 11–21; TEMP 36.7; O2SAT 94–100; BMI 26.4
--- NOTE | 2023-07-30 09:54 | DI.RAD.S_ITS ---
PROCEDURE: XR CHEST 1V INDICATIONS: chest pain TECHNIQUE: One view of the chest was acquired. COMPARISON: [facility], CR, XR CHEST 2 VIEWS, 07/09/2023, 17:51. [facility], CT, CT ABDOMEN PELVIS W CON, 07/30/2023, 10:31. FINDINGS: Surgical changes and devices: A pacer device is seen. The leads are seen in stable positions. Sternotomy wires are seen. Lungs and pleura: On this semiupright portable chest examination, no large pneumothorax or large pleural effusions are seen. No focal infiltrates are seen. Low lung volumes are noted. This causes a crowded appearance to the lung markings and limits evaluation. Mediastinum: The cardiac contours are within normal limits. The aorta demonstrates calcification and tortuosity. Bones and chest wall: No suspicious bony lesions. Age-appropriate bony degenerative changes are seen. Overlying soft tissues appear unremarkable. IMPRESSION: Low lung volumes, without an acute abnormality seen by plain film. Dictated by: Gasper Ferrera M.D. on 07/30/2023 at 9:40 Approved by: Gasper Ferrera M.D. on 07/30/2023 at 9:41
--- NOTE | 2023-07-30 09:55 | ED_ITS ---
HPI - Abdominal Pain General Chief Complaint: Abdominal Pain Stated Complaint: upper ABD pain, clammy Time Seen by Provider: 07/30/23 09:51 History of Present Illness HPI narrative: Patient is a 83-year-old male with known pacemaker presents today with epigastric pain. He says it started while he was cooking deng quite intense felt a little nauseous no vomiting. Denies any chest pain or shortness of breath. He did not pass out. Pain is quickly improving. He was feeling fine yesterday. He reports that he had 1 other episode similar to this a couple weeks ago. He said it does subsided on its own reports that the pain moved around at that time. He denies any fever or chills. Related Data Home Medications Medication Instructions Recorded Confirmed atorvastatin 10 mg tablet 10 mg PO DAILY 11/15/21 11/15/21 metoprolol succinate 25 mg 25 mg PO DAILY 11/15/21 11/15/21 tablet,extended release 24 hr Allergies Allergy/AdvReac Type Severity Reaction Status Date / Time No Known Drug Allergies Allergy Verified 07/30/23 10:23 Patient History Medical History (Updated 07/30/23 @ 12:52 by Debby Cooley DO) Hypertension Dyslipidemia Surgical History H/O mitral valve repair Social History household members: spouse Smoking Status: Never smoker Smoking Status: Never smoker alcohol intake frequency: 0-2 drinks per day Substance Use Type: does not use Exam Initial Vital Signs Initial Vital Signs: Vital Signs Pulse Rate 80 07/30/23 09:53 Respiratory Rate 16 07/30/23 09:53 Pulse Oximetry 99 07/30/23 09:53 GENERAL: Alert pleasant well-appearing 83-year-old male and in no acute distress. HEENT: Head atraumatic,EOMI, pupils reactive, face symmetric, moist mucous membranes CARDIOVASCULAR: Regular rate and rhythm without murmurs, rubs or gallops. RESPIRATORY: Breath sounds equal bilaterally, no wheezes rales or rhonchi. ABDOMEN: Soft, mild epigastric pain negative Miguel sign no lower abdominal pain : No CVA tenderness EXTREMITIES: Normal range of motion, no clubbing or edema. Neurovascularly intact NEUROLOGICAL: Alert and oriented x4.Normal gait and speech. SKIN: Warm, dry, no laceration, no petechiae, no rashes or lesions. Course Orders Ordered: ED Orders 07/30/23 09:50 Complete Blood Count AUTO DIFF Stat Comprehensive Metabolic Panel Stat Lipase Stat Magnesium Stat PTT Partial Thromboplastin Mendoza Stat Prothrombin Time INR Stat Troponin & CK Cardiac Panel Stat 07/30/23 09:54 XR chest 1V Stat EKG-12 Lead Stat 07/30/23 09:55 CT abdomen pelvis w con Stat 07/30/23 10:58 US abdomen limited Stat Discontinued Medications Aspirin (Aspirin 81 Mg Chew Tab) 324 mg PO NOW ONE Stop: 07/30/23 09:54 Last Admin: 07/30/23 11:25 Dose: Not Given Documented By: RB Vital Signs Vital signs: Vital Signs - 8 hr 07/30/23 09:53 07/30/23 09:54 07/30/23 09:54 Temperature Pulse Rate 80 79 Respiratory Rate 16 18 Blood Pressure 164/77 H Pulse Oximetry 99 100 Oxygen Delivery Method 07/30/23 09:56 07/30/23 10:00 07/30/23 10:00 Temperature 98.1 F Pulse Rate 74 73 Respiratory Rate 16 11 L Blood Pressure 172/94 H 156/72 H Pulse Oximetry 94 100 Oxygen Delivery Method Room Air 07/30/23 10:15 07/30/23 10:15 07/30/23 10:40 Temperature Pulse Rate 74 71 Respiratory Rate 20 Blood Pressure 153/76 H Pulse Oximetry 100 96 Oxygen Delivery Method 07/30/23 11:00 07/30/23 11:27 07/30/23 11:27 Temperature Pulse Rate 65 65 Respiratory Rate 13 15 Blood Pressure 129/63 Pulse Oximetry 98 99 Oxygen Delivery Method 07/30/23 11:30 07/30/23 11:30 07/30/23 11:46 Temperature Pulse Rate 62 65 Respiratory Rate 17 21 Blood Pressure 135/59 L Pulse Oximetry 98 Oxygen Delivery Method 07/30/23 11:46 07/30/23 12:00 07/30/23 12:00 Temperature Pulse Rate 62 Respiratory Rate 21 Blood Pressure 125/69 128/64 Pulse Oximetry Oxygen Delivery Method 07/30/23 12:24 07/30/23 12:24 07/30/23 12:30 Temperature Pulse Rate 67 67 Respiratory Rate 18 13 Blood Pressure 146/70 H Pulse Oximetry 100 100 Oxygen Delivery Method 07/30/23 12:30 07/30/23 12:45 07/30/23 12:45 Temperature Pulse Rate 61 Respiratory Rate 14 Blood Pressure 131/74 141/65 H Pulse Oximetry 100 Oxygen Delivery Method 07/30/23 13:00 07/30/23 13:00 Temperature Pulse Rate 64 Respiratory Rate 14 Blood Pressure 146/71 H Pulse Oximetry 100 Oxygen Delivery Method MDM - Abdominal Pain Lab Data 07/30/23 09:50 07/30/23 09:50 Labs: Lab Results 07/30/23 Range/Units 09:50 WBC 9.9 (4.5-11.0) X10^3/uL RBC 3.84 L (4.5-5.9) X10^6/uL Hgb 11.1 L (13.5-17.5) g/dL Hct 33.0 L (41-53) % MCV 86.1 (80-100) fL MCH 29.0 (26-34) PG MCHC 33.7 (30-36) % RDW 22.5 H (11.6-14.8) % Plt Count 392 (150-400) X10^3/uL Neut % (Auto) Not Reportable Lymph % (Auto) Not Reportable Oliver % (Auto) Not Reportable Eos % (Auto) Not Reportable Baso % (Auto) Not Reportable Lymph # (Auto) Not Reportable Oliver # (Auto) Not Reportable Baso # (Auto) Not Reportable Total Counted 100 Seg Neutrophils % 80.0 H (38-70) % Band Neutrophils % 3.0 (3-7) % Lymphocytes % (Manual) 11.0 L (25-45) % Monocytes % (Manual) 1.0 L (2-11) % Eosinophils % (Manual) 3.0 (2-4) % Basophils % (Manual) 2.0 H (0-1) % Neutrophils # (Manual) 8217 H (2137-9102) /uL Platelet Estimate Adequate on smear RBC Morphology See below Polychromasia 1+ H Poikilocytosis 2+ H Anisocytosis 2+ H PT 13.6 H (9.4-12.5) SECONDS INR 1.2 (0.9-1.3) APTT 31 (25.1-36.5) SECONDS Sodium 138 (137-145) mmol/L Potassium 4.0 (3.4-5.1) mmol/L Chloride 106 (98-107) mmol/L Carbon Dioxide 24 (22-32) mmol/L BUN 25 H (9-20) mg/dL Creatinine 1.52 H (0.66-1.25) mg/dL Estimated GFR 46 L (>60) mL/min BUN/Creatinine Ratio 16.4 (6-22) Glucose 134 H (80-110) mg/dL Calcium 9.9 (8.4-10.2) mg/dL Magnesium 1.9 (1.6-2.3) mg/dL Total Bilirubin 1.6 H (0.2-1.3) mg/dL AST 61 H (17-59) IU/L ALT 14 (<50) IU/L Alkaline Phosphatase 67 (38-126) U/L Total Creatine Kinase 59 (55-170) U/L Troponin I < 0.012 (0.01-0.034) ng/mL Total Protein 7.6 (6.3-8.2) g/dL Albumin 4.6 (3.5-5.0) g/dL Globulin 3.0 (1.7-4.1) g/dL Albumin/Globulin Ratio 1.5 (1.0-2.8) Lipase 53 (23-300) U/L Imaging Data US - abdomen: Radiologist's Impression: PROCEDURE: US ABDOMEN LIMITED INDICATIONS: ruq TECHNIQUE: Real-time scanning was performed of the abdominal and retroperitoneal organs, with image documentation. COMPARISON: [facility], CT, CT ABDOMEN PELVIS W CON, 07/30/2023, 10:31. FINDINGS: Liver: Liver is mildly enlarged and homogeneous in echotexture. Gallbladder: Cholelithiasis. No wall thickening. No pericholecystic edema. Negative sonographic Miguel's sign. Biliary ducts: Intrahepatic bile ducts are non-dilated. Extrahepatic bile duct caliber measures 1 mm. Normal is 6-7 mm or less in diameter, or 10 mm or less post-cholecystectomy. Pancreas: Visualized portions of the pancreas are sonographically normal. IMPRESSION: Cholelithiasis without sonographic evidence of acute cholecystitis. Dictated by: Omar Fairbanks M.D. on 07/30/2023 at 12:22 CT scan - abdomen/pelvis: Radiologist's Impression: PROCEDURE: CT ABDOMEN PELVIS W CON INDICATIONS: epigastric pain TECHNIQUE: After the administration of oral and IV contrast, axial sections were acquired from the lung bases to the pubic symphysis. Coronal and sagittal reformats were performed. For radiation dose reduction, the following was used: automated exposure control, adjustment of mA and/or kV according to patient size. COMPARISON: [facility], CT, CT ABDOMEN PELVIS W CON, 06/17/2018, 22:32. FINDINGS: Image quality: Excellent. Lung bases: A small hiatal hernia is incidentally noted. Heart: No significant findings. ABDOMEN: Liver: No solid mass. Gallbladder: Therein gallstones can be seen within the gallbladder as well as within the gallbladder fundus. No additional CT cholecystitis are seen. Biliary ducts: No biliary dilation. Pancreas: No ductal dilation. Spleen: The spleen is enlarged 17 Adrenal Glands: No adrenal nodules. Kidneys and Ureters: No hydronephrosis. No solid mass. No complex renal cystic lesion which requires follow up. Stomach and Bowel: There is a moderate volume is of stool seen within the colon. No dilated loops of small bowel are seen. The stomach is decompressed at the time of this study, limiting its evaluation. Peritoneum: No abnormal intraperitoneal fluid. No free air. Ventral Wall: A mild periumbilical hernia is seen, containing fat. Abdominal Nodes: No retroperitoneal or mesenteric adenopathy by size criteria. Vessels: Aorta and inferior vena cava are normal in size. PELVIS: Pelvic Organs: The prostate is enlarged, measuring 6 cm transversely. Bladder: Areas moderate bladder wall thickening can be seen. Pelvic Nodes: No enlarged lymph nodes. Miscellaneous: No inguinal hernias are seen. Bones: Mild dextroconvex scoliotic curvature is seen. Focal L4-L5 degenerative change is seen. Milder degenerative changes are seen elsewhere. IMPRESSION: There is a moderate amount of stool seen within the colon. Please correlate with an underlying history of constipation. Gallstones are seen, without additional CT findings of cholecystitis. Areas of moderate bladder wall thickening can be seen. Please correlate with bladder outlet obstruction in this patient with an enlarged prostate. Additional findings: Small hiatal hernia Splenomegaly Mild fat containing periumbilical hernia Dextroconvex scoliotic curvature Focal L4-L5 degenerative change ECG Data Interpretation: Sinus rhythm rate 78 OK interval 206 QRS [address] changes PVC noted, no priors to compare MDM Narrative Medical decision making narrative: Patient 83-year-old male who presents today with epigastric pain. Pain has subsided now. Blood work reviewed bilirubin 1.6, ALT 14 AST 61, ALT 14, alk-phos 67, lipase 53, creatinine stable 1.52, no electrolyte abnormalities, no leukocytosis or anemia WBC 9.9 hemoglobin 11.1 hematocrit 33.0 Imaging: Chest x-ray negative, CT abdomen pelvis cholelithiasis, without cholecystitis, moderate stool and bladder wall thickening. Ultrasound shows cholelithiasis without cholecystitis Ultrasound confirms cholelithiasis without evidence of cholecystitis. Slight elevation in bilirubin pain has improved. At this time no need for admission or antibiotics. Encouraged outpatient follow-up with General surgery. Discharge Plan Departure Patient Disposition: Home Clinical Impression: Cholelithiasis Instructions: Gallstones Activity Restrictions/Additional Instructions: *You have been diagnosed with gallstone *What to do: At this time you ultimately will need to have surgery on your gallbladder. Please make an appointment to follow up with surgery. These can get infected however you do not show signs of infection at this time. So please monitor closely. Pacemaker checked out today without any abnormality *Continue to take medications as directed Tylenol Motrin as needed for pain *Follow up with your primary care provider in 2-3 days or call [phone] Call [facility] to schedule follow-up appointment *Return to ER if you should have increasing pain fever nausea vomiting or any new, worsening or concerning symptoms Prescriptions: No Action atorvastatin 10 mg tablet 10 mg PO DAILY metoprolol succinate 25 mg tablet extended release 24 hr 25 mg PO DAILY Referrals: [facility] [Provider Group] Latesha Clayton MD [Primary Care Provider] - Stand Alone Forms: Patient Portal/API
[2023-07-30 10:10] LABS: HEMOLYSIS 18 (0-50)
[2023-07-30 10:11] LABS: INR 1.2 (0.9-1.3); Prothrombin Time 13.6 SECONDS (9.4-12.5)
[2023-07-30 10:13] LABS: PTT Partial Thromboplastin Tim 31 SECONDS (25.1-36.5)
[2023-07-30 10:15] LABS: Alanine Aminotransferase 14 IU/L (<50); Albumin 4.6 g/dL (3.5-5.0); Albumin Globulin Ratio 1.5 (1.0-2.8); Alkaline Phosphatase 67 U/L (38-126); Aspartate Aminotransferase 61 IU/L (17-59); BUN Creatinine Ratio 16.4 (6-22); Bilirubin Total 1.6 mg/dL (0.2-1.3); Blood Urea Nitrogen 25 mg/dL (9-20); Calcium 9.9 mg/dL (8.4-10.2); Carbon Dioxide 24 mmol/L (22-32); Chloride 106 mmol/L (98-107); Creatine Kinase 59 U/L (55-170); Estimated Glomerular Filt Rate 46 mL/min (>60); Glucose 134 mg/dL (80-110); Lipase 53 U/L (23-300); Magnesium 1.9 mg/dL (1.6-2.3); Sodium 138 mmol/L (137-145); Total Protein 7.6 g/dL (6.3-8.2)
[2023-07-30 10:22] LABS: Add Manual Diff / Slide Review YES; Hemoglobin 11.1 g/dL (13.5-17.5); Mean Corpuscular HGB Conc 33.7 % (30-36); Mean Corpuscular Volume 86.1 fL (80-100); Platelet Count 392 X10^3/uL (150-400); Red Blood Cell Count 3.84 X10^6/uL (4.5-5.9); Red Cell Distribution Width 22.5 % (11.6-14.8); White Blood Cell Count 9.9 X10^3/uL (4.5-11.0)
[2023-07-30 10:26] LABS: Neutrophils Absolute Manual 8217 /uL (3000-5900); Total Cells Counted 100
[2023-07-30 10:27] LABS: Anisocytosis 2+; Platelet Estimate Adequate on smear; Poikilocytosis 2+; Polychromasia 1+
--- NOTE | 2023-07-30 10:27 | PC.NURSE ---
This RN interrogated the patient pacemaker. Report given to provider.
[2023-07-30 10:48] LABS: Troponin I < 0.012 ng/mL (0.01-0.034)
--- NOTE | 2023-07-30 10:58 | DI.US.S_ITS ---
PROCEDURE: US ABDOMEN LIMITED INDICATIONS: ruq TECHNIQUE: Real-time scanning was performed of the abdominal and retroperitoneal organs, with image documentation. COMPARISON: [facility], CT, CT ABDOMEN PELVIS W CON, 07/30/2023, 10:31. FINDINGS: Liver: Liver is mildly enlarged and homogeneous in echotexture. Gallbladder: Cholelithiasis. No wall thickening. No pericholecystic edema. Negative sonographic Miguel's sign. Biliary ducts: Intrahepatic bile ducts are non-dilated. Extrahepatic bile duct caliber measures 1 mm. Normal is 6-7 mm or less in diameter, or 10 mm or less post-cholecystectomy. Pancreas: Visualized portions of the pancreas are sonographically normal. IMPRESSION: Cholelithiasis without sonographic evidence of acute cholecystitis. Dictated by: Omar Fairbanks M.D. on 07/30/2023 at 12:22 Approved by: Omar Fairbanks M.D. on 07/30/2023 at 12:23
== END 2023-07-30 13:07 | disposition home or self-care (01) ==
PROVIDERS: Emergency Provider Emergency Medicine; PCP Internal Medicine
DX: K80.20 Calculus of gallbladder without cholecystitis without obstruction (principal); R07.9 Chest pain, unspecified; Z95.0 Presence of cardiac pacemaker
CPT/HCPCS: 36415; 71045; 74177; 76705; 80053; 82550; 83690; 83735; 84484; 85007; 85025; 85610; 85730; 93005; 99283; 99284; Q9967

== ENCOUNTER 2023-08-22 13:50 | Day surgery (SDC) | payer MEDICARE, OTHER, SELFPAY ==
[2023-08-20 13:16] VITALS: BMI 27.6
--- NOTE | 2023-08-22 | PATH_ITS ---
[facility] Accession Number: [id number] No. of containers..01 Tissue . 01 Material submitted: . gallbladder - GALLBLADDER . 01 Diagnosis: Gallbladder, Cholecystectomy: Mild, chronic calculous cholecystitis with reactive changes. Negative for dysplasia and malignancy. [facility] 08/27/2023 1625 Local . 01 Electronically signed: . Ham Bond MD, Pathologist NPI- [id number] . 01 Gross description: . Received in formalin, labeled with the patient's name, , and gallbladder, consists of an intact gallbladder measuring 7.0 x 3.2 x 3.1 cm with a roughened external surface. The cystic duct margin is inked blue, and no pericystic lymph node is identified. The lumen contains multiple brown roughened calculi measuring up to 2.1 cm in greatest dimension admixed with green viscous bile. The mucosa is green and velvety with denuded areas, and no discoloration, polyps, or lesions identified. The alfaro average 0.3 cm thick. Billet Shearer sections to include the cystic duct margin and full thickness sections are submitted in cassette A1. ([id number]) /MRV 08/23/2023 1535 Local . 01 Pathologist provided ICD-10: K80.50 . 01 CPT . 600159 Specimen Comment: A courtesy copy of this report has been sent to [phone] Performed at: 01 [facility] [address] [place] [address], [place], [place] [id number] MD Matt Nation MD Phone: [phone]
[2023-08-22 14:13] VITALS: BMI 26.7
[2023-08-22] MEDS: LACTATED RINGERS 1,000 ML 21 ML IV (14:28)
--- NOTE | 2023-08-22 14:57 | PM.PREOP ---
Pre-operative Note Interval Note History & Physical reviewed/Exam performed by Physician: Yes Changes to H&P: No
[2023-08-22] MEDS: CEFAZOLIN 2 GM/100 ML PREMIX 100 ML IV (15:30)
--- NOTE | 2023-08-22 16:03 | SUR.OPER ---
Supine on padded OR bed, head on pillow, safety belt at thigh, left arm padded and tucked at side. Right arm secured on padded arm board <90 degrees abduction. Legs uncrossed. Padded footboard in place. Tape over blanket to secure lower legs.Gel pad under bilateral heels.
[2023-08-22] MEDS: BUPIVACAINE 0.25% (PF) VIAL 30 ML INJ (16:26)
[2023-08-22 16:52] VITALS: BP 171/91; PULSE 97; RESP 24; TEMP 37; O2SAT 95
[2023-08-22 16:58] VITALS: BP 166/91; PULSE 96; RESP 20; TEMP 36.9; O2SAT 96
--- NOTE | 2023-08-22 16:59 | P.OP_ITS ---
Operative Date/Time/Diagnoses Date of procedure: 08/22/23 Time of procedure: 16:59 Pre-op diagnosis: Biliary colic Post-op diagnosis: other (Chronic cholecystitis) Procedure & Clinicians Procedure: Laparoscopic cholecystectomy Same procedure as scheduled: Yes Indications: 83-year-old male with symptoms and radiographic findings consistent with biliary colic. Surgeon: Dario Berry Click Yes if Unassisted: Yes Anesthesia Type: General Operative Notes Findings: Chronic cholecystitis. Fluid within the gallbladder fossa wall of the gallbladder appears ischemic Specimen(s): other (Gallbladder) Estimated Blood Loss (mL): 30 Procedure in detail: The patient was placed supine on the table and bilateral lower extremity compression devices were applied. Anesthesia was induced they were intubated with an endotracheal tube and received 2g of Ancef. A time-out was performed. They were prepped and draped in sterile fashion. An infraumbilical incision was made. The fascia was elevated incised and the abdomen was entered atraumatically. A blunt tip 12mm balloon trocar was then inserted, pneum operitoneum was established and inspection of the abdomen demonstrated no evidence of injury. They were placed head up and right side up and then a 11 mm port was placed high in the epigastrium and two 5mm in the right upper quadrant. Gallbladder was chronically inflamed and there was fluid bile tinged in the right upper quadrant. On close inspection the wall gallbladder was white and ischemic in areas. The gallbladder was grasped by the fundus and retracted over the liver and retracted laterally by the infundibulum. Using electrocautery the lateral plane between the gallbladder and the liver was opened towards the fundus. The gallbladder was then retracted laterally and the medial plane was developed in the same manner. With the gallbladder mobilized the bottom of the cystic plate was visualized. The hepatocystic triangle was meticulosly skeletonized with blunt dissection of fat and fibrous tissue from both the front and the back. Only two structures were then clearly seen entering the gallbladder the cystic duct and the cystic artery. With the critical view of safety fully established the cystic duct was clipped twice proximally and once distally using the 10 mm Weck hemoclip applied under direct visualization and then sharply divided. The cystic artery was divided in the same fashion. The gallbladder was removed from the liver bed using electro cautery. The liver bed was then inspected for hemostasis and this was achieved. The abdomen was irrigated with sterile saline and inspection was made that showed the clips in good position. The specimen was removed using Endo-Catch. The abdomen was desufflated. The umbilical fascia was closed with 0 Vicryl in a [id number] fashion under direct visualization. Skin incisions were irrigated and closed with 4-0 Monocryl. 30 ml of 0.25% bupivacaine was infiltrated into the subcutaneous tissue of the incisions. The wounds were sealed with Dermabond. Patient emerged from anesthesia was extubated and transferred to recovery in stable condition. The sponge and instrument count at the end of the operation was correct. Complications: none Post-operative Condition: stable Disposition: same day surgery
[2023-08-22 17:03] VITALS: BP 159/80; PULSE 93; RESP 23; TEMP 36.9; O2SAT 93
[2023-08-22 17:08] VITALS: BP 160/89; PULSE 91; RESP 21; TEMP 36.9; O2SAT 95
[2023-08-22 17:16] VITALS: BP 156/78; PULSE 89; RESP 12; TEMP 36.9; O2SAT 96
[2023-08-22] MEDS: ONDANSETRON 4 MG/2 ML INJ IV (17:27)
[2023-08-22] MEDS: OXYCODONE IR 5 MG TABLET PO (17:27)
== END 2023-08-22 17:35 | disposition home or self-care (01) ==
PROVIDERS: PCP Internal Medicine; Referring Provider Surgery; Visit Provider Surgery
PROC: 0FT44ZZ Resection of Gallbladder, Percutaneous Endoscopic Approach (ICD-10-PCS; CPT 47562; principal; 2023-08-22 15:30)
DX: K80.10 Calculus of gallbladder with chronic cholecystitis without obstruction (principal)
CPT/HCPCS: 47562; J0690; J2405; J2704; J3010; J3490

== ENCOUNTER 2023-08-29 11:35 | Emergency (ER) | payer MEDICARE, OTHER, SELFPAY ==
[2023-08-29] VITALS (13 sets, daily range): BP systolic 116–157; BP diastolic 57–76; PULSE 68–77; RESP 16–28; TEMP 37; O2SAT 95–100; BMI 24.7
--- NOTE | 2023-08-29 11:54 | DI.CT.S_ITS ---
PROCEDURE: CT ANGIO HEAD AND NECK INDICATIONS: L EYE VISION LOSS YESTERDAY TECHNIQUE: After the administration of intravenous contrast, 1 mm thick sections acquired from the aortic arch through the Correll of [place]. 3-dimensional hajuire-bunzcjjdk-yfbwyihxxx (MIP) and/or volume rendering reformats were acquired of the central intracranial vasculature and neck separately. For radiation dose reduction, the following was used: automated exposure control, adjustment of mA and/or kV according to patient size. COMPARISON: [facility], CT, CT HEAD/BRAIN WO CON, 08/29/2023, 12:31. [facility], MR, MR STROKE, 07/24/2018, 8:00. FINDINGS: Image quality: Diagnostic. BRAIN: CSF spaces: Ventricles are normal in size and shape. Basal cisterns are patent. No extra-axial fluid collections. Brain: No significant abnormality of the brain can be seen. Skull and face: Calvarium and facial bones appear intact, without suspicious lesions. Orbits appear normal. Sinuses: Sinuses and mastoids are clear. HEAD CT ANGIOGRAPHY: Anterior circulation: Intracranial internal carotid arteries are normal in size and flow. The flow within the paired anterior cerebral arteries is normal and symmetric. The flow within the middle cerebral arteries is normal and symmetric. The anterior communicating artery is seen. No aneurysms are seen. Posterior circulation: Visualized portions of the vertebral arteries demonstrate normal caliber, and join to form a normal appearing basilar artery. Flow within the posterior cerebral arteries is normal and symmetric. No aneurysms are seen. NECK CT ANGIOGRAPHY: Carotid system: The great vessels demonstrate a conventional anatomy as they arise from the aortic arch. The origins of the common carotid arteries appear patent. The common carotid arteries demonstrate normal caliber and courses. The bifurcation regions demonstrate atherosclerotic irregularity and calcification. There is 60-70% narrowing seen involving the left proximal internal carotid artery. No hemodynamically significant stenosis can be seen on the right. The more distal internal carotid arteries demonstrate normal course and caliber. Posterior circulation: The origins of the vertebral arteries both appear widely patent. The more superior extracranial portions of both vertebral arteries also demonstrate normal courses and calibers. Soft tissues: Visualized neck soft tissues demonstrate no suspicious abnormalities. There is a left-sided pacer device. Bones: No suspicious bony lesions. Visualized cervical spine appears normally aligned. At least moderate cervical spine degenerative change can be seen. Sternotomy wires are seen. IMPRESSION: No significant intracranial arterial abnormality is seen. 60-70% narrowing can be seen involving the left proximal internal carotid artery. Additional findings: At least moderate cervical spine degenerative change Left-sided pacer device Sternotomy Any quantitative measurements of stenosis were performed using NASCET criteria. Dictated by: Gasper Ferrera M.D. on 08/29/2023 at 12:00 Approved by: Gasper Ferrera M.D. on 08/29/2023 at 12:04
--- NOTE | 2023-08-29 11:54 | DI.CT.S_ITS ---
PROCEDURE: CT HEAD/BRAIN WO CON INDICATIONS: L EYE VISION LOSS YESTERDAY TECHNIQUE: Noncontrast 4.5 mm thick angled axial sections acquired from the foramen magnum to the vertex, with coronal and sagittal reformats. For radiation dose reduction, the following was used: automated exposure control, adjustment of mA and/or kV according to patient size. COMPARISON: None. FINDINGS: Image quality: Diagnostic CSF spaces: Basal cisterns are patent. Lateral ventricles are symmetric. Volume: Vascular calcifications. Periventricular white matter disease is commonly seen with chronic microangiopathy. Volume loss is present. These findings are moderate Brain: No gross loss of singh-white differentiation or acute intracranial hemorrhage. Falx chronic appearing calcifications are present. Craniofacial structures: Lens replacements. IMPRESSION: No acute intracranial pathology. If there is high concern for parenchymal abnormality, consider MRI. Dictated by: Az Kothari M.D. on 08/29/2023 at 12:44 Approved by: Az Kothari M.D. on 08/29/2023 at 12:46
--- NOTE | 2023-08-29 11:54 | DI.RAD.S_ITS ---
PROCEDURE: XR CHEST 1V INDICATIONS: L EYE VISION LOSS YESTERDAY TECHNIQUE: One view of the chest was acquired. COMPARISON: [facility], CR, XR CHEST 1V, 07/30/2023, 10:22. FINDINGS: Surgical changes and devices: Pacemaker and sternal wires. Lungs and pleura: Lungs are clear. No pleural effusions or pneumothorax. Mediastinum: Mediastinal contours appear normal. Heart size is normal. Bones and chest wall: No suspicious bony lesions. Overlying soft tissues appear unremarkable. IMPRESSION: No acute pulmonary process. Dictated by: Jeaneth Mckeon M.D. on 08/29/2023 at 12:27 Approved by: Jeaneth Mckeon M.D. on 08/29/2023 at 12:27
--- NOTE | 2023-08-29 11:59 | ED.NEUROSD ---
HPI - Neuro Symptoms/Deficit General Chief Complaint: Neuro Symptoms/Deficit Stated Complaint: lost vision in L eye yest,cardioreffer poss stroke Time Seen by Provider: 08/29/23 11:44 Source: patient Mode of arrival: Ambulatory History of Present Illness HPI Narrative: 83yoM presents for transient left lower vision loss yesterday. Patient states he was watching TV when he noticed vision loss in his left eye only on the lower half. He states it was ?like a curtain? and painless. It lasted for approximately 15 minutes and then resolved. 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 Patient states that approximately 4 years ago something similar happened, he was evaluated at outside facility where he was told that he had carotid artery plaque, however it was not severe enough to require surgery and required monitoring only. On Anticoagulants: No Related Data Home Medications Medication Instructions Recorded Confirmed aspirin 81 mg tablet,delayed 81 mg PO DAILY 08/17/23 08/17/23 release (Adult Low Dose Aspirin) multivitamin 1 tab PO DAILY 08/17/23 08/17/23 rosuvastatin 5 mg tablet 5 mg PO DAILY 08/17/23 08/17/23 Previous Rx's Medication Instructions Recorded acetaminophen 325 mg capsule 650 mg (2 x 325 mg) PO QID PRN 08/22/23 (Tylenol) pain #60 caps docusate sodium 100 mg capsule 100 mg PO BID #30 caps 08/22/23 (Colace) tramadol 50 mg tablet 50 mg PO Q6H PRN pain #15 tabs 08/22/23 clopidogrel 75 mg tablet (Plavix) 75 mg PO DAILY #21 tabs 08/29/23 Allergies Allergy/AdvReac Type Severity Reaction Status Date / Time No Known Drug Allergies Allergy Verified 08/16/23 16:12 Review of Systems Review of Systems Narrative: Negative except as noted above Hematologic/Lymphatic On Anticoagulants: No Patient History Medical History Carotid artery occlusion Anesthesia complication CKD (chronic kidney disease) Nonsustained ventricular tachycardia GERD (gastroesophageal reflux disease) TIA (transient ischemic attack) Amaurosis fugax of right eye LAVINIA (obstructive sleep apnea) Pacemaker (07/09/23) Hypertension Dyslipidemia Surgical History H/O: vasectomy Cataract extraction status, right eye History of open heart surgery H/O mitral valve repair Social History marital status: household members: spouse lives independently: Yes occupational status: previously employed Smoking Status: Never smoker alcohol intake: current substance use type: does not use Smoking Status: Never smoker alcohol intake frequency: 0-2 drinks per day Substance Use Type: does not use Exam Initial Vital Signs Initial Vital Signs: Vital Signs Temperature 98.6 F 08/29/23 11:38 Pulse Rate 77 08/29/23 11:38 Respiratory Rate 18 08/29/23 11:38 Blood Pressure 140/70 08/29/23 11:38 Pulse Oximetry 98 08/29/23 11:38 Oxygen Delivery Method Room Air 08/29/23 11:38 Const: Awake, alert, no acute distress, nontoxic appearing Eyes: PERRL, EOMI, conjunctiva normal Cardiac: regular rate, regular rhythm, pacemaker left chest wall RESP: unlabored, clear bilaterally, no wheezing GI: Atraumatic, soft, nontender, nondistended, no rebound, no guarding MSK: Atraumatic, full range of motion, pulses equal Skin: Warm, Dry, well healing surgical scars on abdomen. Surrounding bruising in stages of healing Neuro: AO x3, CN II-XII grossly intact, moves all extremities Psych: affect normal, mood normal, not suicidal, not homicidal Course Orders Ordered: ED Orders 08/29/23 11:54 CT angio head and neck Stat CT head/brain wo con Stat Chest [XR chest 1V] Stat 08/29/23 11:55 BNP [NT-proBNP (BNP-Adult 18+)] Stat CBC Auto Diff [Complete Blood Count AUTO DIFF] Stat CMP [Comprehensive Metabolic Panel] Stat PT [Prothrombin Time INR] Stat TSH [Thyroid Stimulating Hormone] Stat Troponin & CK Cardiac Panel Stat 08/29/23 14:06 EC echo doppler complete Stat 08/29/23 14:35 UA Complete [Urinalysis and Microscopic] Stat Vital Signs Vital signs: Vital Signs - 8 hr 08/29/23 11:38 08/29/23 11:48 08/29/23 11:48 Temperature 98.6 F Pulse Rate 77 76 Respiratory Rate 18 28 H Blood Pressure 140/70 157/76 H Pulse Oximetry 98 100 Oxygen Delivery Method Room Air 08/29/23 12:00 08/29/23 12:00 08/29/23 12:12 Temperature Pulse Rate 74 Respiratory Rate 18 Blood Pressure 116/57 L 145/68 H Pulse Oximetry 100 Oxygen Delivery Method 08/29/23 12:12 08/29/23 12:40 08/29/23 12:41 Temperature Pulse Rate 76 71 Respiratory Rate 17 Blood Pressure 139/68 Pulse Oximetry 99 95 Oxygen Delivery Method 08/29/23 12:41 08/29/23 13:00 08/29/23 13:00 Temperature Pulse Rate 71 68 Respiratory Rate 18 17 Blood Pressure 129/66 Pulse Oximetry 98 99 Oxygen Delivery Method 08/29/23 13:30 08/29/23 13:30 08/29/23 14:41 Temperature Pulse Rate 69 71 Respiratory Rate 17 Blood Pressure 146/71 H Pulse Oximetry 99 98 Oxygen Delivery Method 08/29/23 14:42 08/29/23 14:42 08/29/23 15:00 Temperature Pulse Rate 74 74 Respiratory Rate 20 16 Blood Pressure 143/69 H Pulse Oximetry 99 99 Oxygen Delivery Method 08/29/23 15:00 08/29/23 15:30 08/29/23 15:30 Temperature Pulse Rate 73 Respiratory Rate 20 Blood Pressure 129/59 L 129/62 Pulse Oximetry 98 Oxygen Delivery Method 08/29/23 16:00 08/29/23 16:00 Temperature Pulse Rate 73 Respiratory Rate 16 Blood Pressure 124/65 Pulse Oximetry 100 Oxygen Delivery Method MDM - Neuro Symptoms/Deficit Differential Diagnosis Differential diagnosis: Likely subarachnoid hemorrhage, cerebrovascular accident and multiple sclerosis Lab Data 08/29/23 11:55 08/29/23 11:55 Labs: Lab Results 08/29/23 08/29/23 08/29/23 Range/Units 11:55 14:35 16:53 WBC 10.4 (4.5-11.0) X10^3/uL RBC 3.26 L (4.5-5.9) X10^6/uL Hgb 9.2 L (13.5-17.5) g/dL Hct 28.4 L (41-53) % MCV 87.0 (80-100) fL MCH 28.3 (26-34) PG MCHC 32.6 (30-36) % RDW 22.5 H (11.6-14.8) % Plt Count 335 (150-400) X10^3/uL Neut % (Auto) 85.2 H (50-75) % Lymph % (Auto) 7.5 L (25-40) % [place] % (Auto) 3.6 (3-14) % Eos % (Auto) 2.8 (2-4) % Baso % (Auto) 0.9 (0-2) % Neut # (Auto) 8800 H (3320-9245) /uL Lymph # (Auto) 800 L (0284-5098) /uL [place] # (Auto) 400 (0-900) /uL Eos # (Auto) 300 (0-450) /uL Baso # (Auto) 100 (0-100) /uL RBC Morphology Not Reportable Poikilocytosis 2+ H Anisocytosis 2+ H PT 15.4 H (9.4-12.5) SECONDS INR 1.3 (0.9-1.3) Sodium 137 (137-145) mmol/L Potassium 4.0 (3.4-5.1) mmol/L Chloride 102 (98-107) mmol/L Carbon Dioxide 29 (22-32) mmol/L BUN 36 H (9-20) mg/dL Creatinine 1.28 H (0.66-1.25) mg/dL Estimated GFR 56 L (>60) mL/min BUN/Creatinine Ratio 28.1 H (6-22) Glucose 100 (80-110) mg/dL Calcium 9.2 (8.4-10.2) mg/dL Iron Cancelled TIBC Cancelled Ferritin Cancelled Total Bilirubin 1.5 H (0.2-1.3) mg/dL AST 119 H (17-59) IU/L ALT 110 H (<50) IU/L Alkaline Phosphatase 85 (38-126) U/L Total Creatine Kinase 32 L (55-170) U/L Troponin I < 0.012 (0.01-0.034) ng/mL NT-Pro-B Natriuret Pep 2790 H (<450) pg/mL Total Protein 6.9 (6.3-8.2) g/dL Albumin 3.9 (3.5-5.0) g/dL Globulin 3.0 (1.7-4.1) g/dL Albumin/Globulin Ratio 1.3 (1.0-2.8) 25-OH Vitamin D Total Cancelled TSH 2.53 (0.47-4.68) uIU/mL Urine Color Yellow Urine Appearance Clear Urine pH 6.0 (4.5-8.0) Ur Specific [place] 1.010 (1.000-1.035) Urine Protein Negative (Negative) Urine Glucose (UA) Negative (Negative) g/dL Urine Ketones Negative (NEGATIVE) Urine Occult Blood Negative (Negative) Urine Nitrate Negative (Negative) Urine Bilirubin Negative (NEGATIVE) Urine Urobilinogen 4.0 H (0.2) E.U./dL Ur Leukocyte Esterase Negative (NEGATIVE) Urine RBC None seen (0-5/HPF) Urine WBC 0-1/hpf (0-5/HPF) Ur Squamous Epith Cells 0-1 /hpf (0-5/HPF) Urine Bacteria None seen (None) Ur Culture Indicated? Cult not indicated Vol Urine Centrifuged 10ml (spun) MDM Narrative Medical decision making narrative: Transient vision loss greater than 12 hours ago, patient states currently his vision is back to baseline. No other focal neurologic deficit noted on exam. CT brain, CT angio reviewed, patient has known narrowing of the left ICA, which does appear to be progressed from carotid Doppler study in 2020. Echocardiogram reviewed. Unable to get brain MRI due to presence of pacemaker. ABCD2 score 3 due to age, duration of symptoms, BP. Patient already on daily aspirin, will add 21 days of plavix. Patient advised to follow up with cardiology and PCP. Of note, mild elevation in liver enzymes, this is likely secondary to being recently s/p lap molly. Discharge Plan Departure Patient Disposition: Home Clinical Impression: Loss, vision, sudden Qualifiers: Laterality: left Qualified Code(s): H53.132 - Sudden visual loss, left eye Instructions: DI for Transient Ischemic Attack Prescriptions: New clopidogrel [Plavix] 75 mg tablet 75 mg PO DAILY Qty: 21 0RF No Action rosuvastatin 5 mg tablet 5 mg PO DAILY multivitamin Tablet 1 tab PO DAILY aspirin [Adult Low Dose Aspirin] 81 mg tablet,delayed release (DR/EC) 81 mg PO DAILY docusate sodium [Colace] 100 mg capsule 100 mg PO BID Qty: 30 0RF tramadol 50 mg tablet 50 mg PO Q6H PRN (Reason: pain) Qty: 15 0RF acetaminophen [Tylenol] 325 mg capsule 650 mg PO QID PRN (Reason: pain) Qty: 60 0RF Referrals: Latesha Clayton MD [Primary Care Provider] - Stand Alone Forms: Patient Portal/API
[2023-08-29 12:08] LABS: Add Manual Diff / Slide Review NO; Basophils Absolute Auto 100 /uL (0-100); Basophils Percent Auto 0.9 % (0-2); Eosinophils Absolute Auto 300 /uL (0-450); Eosinophils Percent Auto 2.8 % (2-4); Hematocrit 28.4 % (41-53); Hemoglobin 9.2 g/dL (13.5-17.5); Lymphocytes Absolute Auto 800 /uL (1100-4500); Lymphocytes Percent Auto 7.5 % (25-40); Mean Corpuscular HGB Conc 32.6 % (30-36); Mean Corpuscular Hemoglobin 28.3 PG (26-34); Monocytes Absolute Auto 400 /uL (0-900); Monocytes Percent Auto 3.6 % (3-14); Neutrophils Absolute Auto 8800 /uL (1500-7000); Neutrophils Percent Auto 85.2 % (50-75); Platelet Count 335 X10^3/uL (150-400); Red Blood Cell Count 3.26 X10^6/uL (4.5-5.9); Red Cell Distribution Width 22.5 % (11.6-14.8); White Blood Cell Count 10.4 X10^3/uL (4.5-11.0)
[2023-08-29 12:13] LABS: INR 1.3 (0.9-1.3); Prothrombin Time 15.4 SECONDS (9.4-12.5)
[2023-08-29 12:20] LABS: Alanine Aminotransferase 110 IU/L (<50); Albumin 3.9 g/dL (3.5-5.0); Albumin Globulin Ratio 1.3 (1.0-2.8); Alkaline Phosphatase 85 U/L (38-126); Anisocytosis 2+; Aspartate Aminotransferase 119 IU/L (17-59); BUN Creatinine Ratio 28.1 (6-22); Bilirubin Total 1.5 mg/dL (0.2-1.3); Blood Urea Nitrogen 36 mg/dL (9-20); Calcium 9.2 mg/dL (8.4-10.2); Carbon Dioxide 29 mmol/L (22-32); Chloride 102 mmol/L (98-107); Creatine Kinase 32 U/L (55-170); Estimated Glomerular Filt Rate 56 mL/min (>60); Glucose 100 mg/dL (80-110); HEMOLYSIS < 15 (0-50); Poikilocytosis 2+; Sodium 137 mmol/L (137-145); Total Protein 6.9 g/dL (6.3-8.2)
[2023-08-29 12:33] LABS: NT-proBNP (BNP-Adult 18+) 2790 pg/mL (<450); Troponin I < 0.012 ng/mL (0.01-0.034)
[2023-08-29 12:53] LABS: Thyroid Stimulating Hormone 2.53 uIU/mL (0.47-4.68)
--- NOTE | 2023-08-29 14:06 | DI.ECHO.S_ITS ---
[facility]---------+ [facility] +---------+ : : [address] : : : : [id number] : : : : Phone: [phone] Echocardiogram Report + + :Name: DEMETRICE DUMONT Study Date: 08/29/2023 Height: 72 in : :[facility] ReadingLocation: Weight: 182 lb : : Gender: Male BSA: 2.0 m2 : :: 1940 Age: 83 yrs BP: 129/59 mmHg: :Reason For Study: TIA : :Ordering Physician: RICHA, : :CAMI Performed By: Rolando Carrillo : :Referring: CAMI CHAUDHRY : + + Interpretation Summary The ejection fraction is estimated to be 50-55%. Diastolic function could not be accurately assessed due to confounding valvular disease. The left atrium is severely dilated. The right ventricle is moderately dilated. The right ventricular systolic function is normal. The right atrium is mildly dilated. There is moderate mitral regurgitation. An annuloplasty ring is noted in the mitral position. Pulmonary artery pressures cannot be estimated because of the lack of a measurable TR jet velocity. Compared to the prior study dated 01/11/2023, there is a slight decrease in LVEF and the right ventricle now appears dilated. Procedure: A two-dimensional transthoracic echocardiogram with color flow and Doppler was performed. The study quality was technically adequate. Comparison is made with the echocardiogram of 01/11/23. The patient was in normal sinus rhythm during the exam. The patient had occasional PACs during the exam. The heart rate ranged between 67-87 bpm during the study. Left Ventricle: The left ventricle is normal in size and wall thickness. The ejection fraction is estimated to be 50-55%. Diastolic function could not be accurately assessed due to confounding valvular disease. Right Ventricle: The right ventricle is moderately dilated. The right ventricular systolic function is normal. Atria: The left atrium is severely dilated. The right atrium is mildly dilated. Mitral Valve: The mitral valve leaflets appear moderately thickened, but open well. The mitral valve leaflets are mildly calcified. An annuloplasty ring is noted in the mitral position. There is moderate mitral regurgitation. Aortic Valve: The aortic valve is trileaflet. There is no aortic valve stenosis. No aortic regurgitation is present. Tricuspid Valve: The tricuspid valve is normal in structure and function. There is a trace or physiologic amount of tricuspid regurgitation. Pulmonary artery pressures cannot be estimated because of the lack of a measurable TR jet velocity. Pulmonic Valve: The pulmonic valve is not well visualized. There is mild pulmonic regurgitation. Great Vessels: The aortic root is normal size. The ascending aorta could not be visualized. The inferior vena cava was not well visualized. Pericardium/ Pleura There is no pericardial effusion. There is no pleural effusion. MMode/2D Measurements & Calculations LVIDd: 5.6 cm LVOT diam: 2.2 cm LVIDs: 4.0 cm Ao root diam: 3.7 cm FS: 28.8 % IVSd: 1.1 cm LVPWd: 0.95 cm LV carrizales. diameter/BSA (cm/m^2): 2.8 LV sys. diameter/BSA (cm/m^2): 2.0 LA A2 area: 26.8 cm2 RA long axis: 5.7 cm LA A4 area: 30.8 cm2 RA area: 24.0 cm2 LA length (vol): 5.7 cm RA vol: 85.6 ml LA vol: 121.9 ml RA : 41.8 ml/m2 LA vol index: 59.6 ml/m2 IVC diam: 2.2 cm RVD1 (basal): 4.9 cm RVD2 (mid): 4.3 cm TAPSE: 2.3 cm Doppler Measurements & Calculations Ao V2 max: 185.5 cm/sec LVOT Max Brooks: 94.6 cm/sec Ao V2 mean: 126.6 cm/sec LV V1 max P.6 mmHg Ao max P.8 mmHg LV V1 VTI: 21.8 cm Ao mean P.3 mmHg LUZ(I,D): 2.1 cm2 Ao V2 VTI: 37.8 cm LUZ(V,D): 1.9 cm2 sev ratio: 0.58 LUZ indexed to BSA (cm^2/m^2): 1.0 MV E max brooks: 103.3 cm/sec TR max brooks: 293.7 cm/sec MV A max brooks: 80.7 cm/sec TR max P.5 mmHg MV E/A: 1.3 PA V2 max: 95.7 cm/sec Med Peak E' Brooks: 8.0 cm/sec PA V2 mean: 74.9 cm/sec E/E' med: 12.9 PA mean P.4 mmHg Lat Peak E' Brooks: 9.4 cm/sec PA pr(Accel): 32.8 mmHg E/E' lat: 10.9 E/e' average: 11.9 MV dec time: 0.22 sec MR ERO: 0.15 cm2 MR PISA: 2.3 cm2 SV(LVOT): 79.3 ml MR flow rate: 88.2 cm3/sec MR PISA radius: 0.61 cm Reading Physician:04:19 PM
--- NOTE | 2023-08-29 14:33 | PC.NURSE ---
Pt allowed food/beverage prior to echo, per physician.
[2023-08-29 14:49] LABS: Urine Volume 10mL (spun)
[2023-08-29 14:51] LABS: Appearance Urine UA CLEAR; Bilirubin Urine UA NEGATIVE (NEGATIVE); Color Urine UA YELLOW; Glucose Urine UA NEGATIVE (Negative); Ketones Urine UA NEGATIVE (NEGATIVE); Leukocyte Esterase Urine UA NEGATIVE (NEGATIVE); Nitrite Urine UA NEGATIVE (Negative); Occult Blood Urine UA NEGATIVE (Negative); Protein Urine UA NEGATIVE (Negative)
[2023-08-29 15:11] LABS: Bacteria Urine None Seen; Culture Indicated Urine Cult Not Indicated; RBC Urine None Seen (0-5/HPF); Squamous Epithelial Cell Urine 0-1 /HPF (0-5/HPF); WBC Urine 0-1/HPF (0-5/HPF)
== END 2023-08-29 16:20 | disposition home or self-care (01) ==
PROVIDERS: Emergency Provider Emergency Medicine; PCP Internal Medicine
DX: H53.132 Sudden visual loss, left eye (principal); R79.89 Other specified abnormal findings of blood chemistry; D64.9 Anemia, unspecified
CPT/HCPCS: 36415; 70450; 70496; 70498; 71045; 80053; 81001; 82043; 82306; 82550; 82570; 82728; 83540; 83550; 83880; 84443; 84484; 85025; 85610; 93306; 99284; Q9967

== ENCOUNTER → 2023-08-29 16:23 | Outpatient (CLI) | payer MEDICARE, OTHER, SELFPAY ==
[2023-08-29 18:06] LABS: Iron 47 ug/dL (49-181)
[2023-08-29 18:19] LABS: Total Iron Binding Capacity 224 ug/dL (261-462)
[2023-08-29 18:43] LABS: Ferritin 132 ng/mL (18-464)
[2023-08-29 20:01] LABS: Creatinine Urine Random 83.6 mg/dL
[2023-08-29 20:07] LABS: Microalbumi Creatinin Ratio Ur 52.6 ug/mg CR (<30); Microalbumin Urine Random 4.4 mg/dL (0-1.6)
== END ==
PROVIDERS: Internal Medicine Nephrology; PCP Internal Medicine; Referring Provider Nurse Practitioner Gerontology; Visit Provider Nurse Practitioner Gerontology
DX: D64.9 Anemia, unspecified (principal)
CPT/HCPCS: 82043; 82570

== ENCOUNTER → 2023-08-30 14:15 | Outpatient (CLI) | payer MEDICARE, OTHER, SELFPAY ==
[2023-08-30 15:57] LABS: Reticulocyte Count, Percent 4.3 % (0.9-2.6)
[2023-08-30 16:03] LABS: Add Manual Diff / Slide Review NO; Basophils Absolute Auto 100 /uL (0-100); Basophils Percent Auto 1.2 % (0-2); Eosinophils Absolute Auto 300 /uL (0-450); Eosinophils Percent Auto 2.6 % (2-4); Hematocrit 29.5 % (41-53); Hemoglobin 9.6 g/dL (13.5-17.5); Lymphocytes Absolute Auto 500 /uL (1100-4500); Mean Corpuscular HGB Conc 32.7 % (30-36); Mean Corpuscular Hemoglobin 28.5 PG (26-34); Mean Corpuscular Volume 87.2 fL (80-100); Monocytes Absolute Auto 400 /uL (0-900); Monocytes Percent Auto 3.5 % (3-14); Neutrophils Absolute Auto 8900 /uL (1500-7000); Neutrophils Percent Auto 87.7 % (50-75); Platelet Count 371 X10^3/uL (150-400); Red Blood Cell Count 3.38 X10^6/uL (4.5-5.9); Red Cell Distribution Width 22.1 % (11.6-14.8); White Blood Cell Count 10.1 X10^3/uL (4.5-11.0)
[2023-08-30 16:30] LABS: Anisocytosis 3+
[2023-08-30 16:31] LABS: Vitamin B12 933 pg/mL (239-931)
[2023-08-31 22:34] LABS: Free Lambda Lt Chains,Serum 18.2 mg/L (5.7-26.3)
[2023-09-03 16:39] LABS: Albumin 3.5 g/dL (2.9-4.4); Alpha-1-Globulin 0.4 g/dL (0.0-0.4); Alpha-2-Globulin 0.6 g/dL (0.4-1.0); Gamma Globulin 0.7 g/dL (0.4-1.8); Globulin Total 2.6 g/dL (2.2-3.9); Immunoglobulin A, Serum 73 mg/dL (61-437); Immunoglobulin G,Serum 703 mg/dL (603-1613); Immunoglobulin M, Serum 77 mg/dL (15-143); Protein, Total 6.1 g/dL (6.0-8.5)
[2023-09-04 12:36] LABS: Beta Globulin, Ur 17.9 % (.); Gamma Globulin, Ur 15.5 % (.); M-Spike % Comment: % (Not Observed); Urine Total Protein 18.6 mg/dL (Not Estab.)
== END ==
LOC: LAB 14:18
PROVIDERS: PCP Internal Medicine; Referring Provider Surgery; Visit Provider Surgery
DX: D84.9 Immunodeficiency, unspecified (principal)
CPT/HCPCS: 36415; 82607; 82784; 83883; 84155; 84156; 84165; 84166; 85025; 85045; 86334

== ENCOUNTER → 2023-09-05 09:48 | Outpatient (CLI) | payer MEDICARE, OTHER, SELFPAY ==
[2023-09-05 12:43] LABS: Occult Blood 1 Negative (Negative)
== END ==
PROVIDERS: PCP Internal Medicine; Referring Provider Internal Medicine Nephrology; Visit Provider Internal Medicine Nephrology
DX: D64.9 Anemia, unspecified (principal); N18.31 Chronic kidney disease, stage 3a
CPT/HCPCS: 82270

== ENCOUNTER → 2023-10-29 15:08 | Outpatient (CLI) | payer MEDICARE, OTHER, SELFPAY ==
[2023-10-29 16:42] LABS: Basophils Absolute Auto 100 /uL (0-100); Basophils Percent Auto 1.5 % (0-2); Eosinophils Absolute Auto 200 /uL (0-450); Eosinophils Percent Auto 2.6 % (2-4); Hematocrit 29.4 % (41-53); Hemoglobin 9.6 g/dL (13.5-17.5); Lymphocytes Absolute Auto 600 /uL (1100-4500); Lymphocytes Percent Auto 7.2 % (25-40); Mean Corpuscular HGB Conc 32.5 % (30-36); Mean Corpuscular Hemoglobin 28.2 PG (26-34); Mean Corpuscular Volume 86.8 fL (80-100); Monocytes Absolute Auto 300 /uL (0-900); Monocytes Percent Auto 3.8 % (3-14); Neutrophils Absolute Auto 7200 /uL (1500-7000); Neutrophils Percent Auto 84.9 % (50-75); Platelet Count 353 X10^3/uL (150-400); Red Blood Cell Count 3.39 X10^6/uL (4.5-5.9); Red Cell Distribution Width 24.4 % (11.6-14.8); White Blood Cell Count 8.5 X10^3/uL (4.5-11.0)
[2023-10-29 16:43] LABS: Add Manual Diff / Slide Review SLIDE REVIEW
[2023-10-29 17:05] LABS: NT-proBNP (BNP-Adult 18+) 2340 pg/mL (<450)
[2023-10-29 17:16] LABS: Anisocytosis 3+; Poikilocytosis 2+; Schistocytes 1+
== END ==
PROVIDERS: PCP Internal Medicine; Referring Provider Internal Medicine Cardiovascular Disease; Visit Provider Internal Medicine Cardiovascular Disease
DX: R06.02 Shortness of breath (principal)
CPT/HCPCS: 36415; 83880; 85025

== ENCOUNTER → 2024-08-14 08:54 | Outpatient (CLI) | payer MEDICARE, OTHER, SELFPAY ==
[2024-08-14 10:09] LABS: Cholesterol 121 mg/dL (140-199); Estimated Glomerular Filt Rate 39 mL/min (>60); HDL Cholesterol 57 mg/dL (40-60); LDL Cholesterol Calculated 51 mg/dL (<100); Triglycerides 64 mg/dL (35-150)
== END ==
PROVIDERS: Urology; PCP Internal Medicine; Referring Provider Internal Medicine Cardiovascular Disease; Visit Provider Internal Medicine Cardiovascular Disease
DX: E78.5 Hyperlipidemia, unspecified (principal); N28.1 Cyst of kidney, acquired
CPT/HCPCS: 36415; 80061; 82565

== ENCOUNTER → 2024-09-24 13:32 | Outpatient (CLI) | payer MEDICARE, OTHER, SELFPAY ==
--- NOTE | 2024-09-24 13:34 | DI.CT.S_ITS ---
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 After the administration of intravenous contrast, 5 mm thick images again acquired from the diaphragm to the iliac crests in the arterial and urographic phases. 5 mm thick coronal and sagittal reformats were then acquired. For radiation dose reduction, the following was used: automated exposure control, adjustment of mA and/or kV according to patient size. COMPARISON: [facility], US, US ABDOMEN COMPLETE, 03/28/2024, 9:38. [facility], CT, CT ABDOMEN PELVIS W CON, 07/30/2023, 10:31. FINDINGS: Image quality: Diagnostic. Kidneys and Ureters: Normal size kidneys. Tiny hyperdense lesion arising from the upper posterior pole left kidney. No enhancement. No suspicious calcifications on precontrast imaging. Small medullary cyst in the midpole left kidney without internal enhancement, with one, maybe two, fine, non measurable thin septations measures about 1.3 cm, stable. No significant nodularity or thickened septation. No calcifications. Elsewhere, there are no enhancing solid masses in either kidney. Symmetric uptake and excretion of IV contrast. No hydronephrosis or proximal hydroureter. OTHER: Lower chest: Clear lung bases. Small hiatal hernia. Mild cardiomegaly with pacemaker leads present. Liver: No solid mass. Gallbladder: Surgically absent. Biliary ducts: Appropriate biliary tree caliber post cholecystectomy. Pancreas: Normal size and morphology without visible ductal dilatation or inflammation. Spleen: Mild splenomegaly at 14.3 cm in length. Adrenal Glands: No adrenal nodules. Stomach and Bowel: Stomach and visible bowel loops are within normal limits. Peritoneum: No abnormal intraperitoneal fluid. No free air. Ventral Wall: Wide necked fat containing supraumbilical hernia x2. Abdominal Nodes: No retroperitoneal or mesenteric adenopathy by size criteria. Vessels: The abdominal aorta, IVC, and portal vein are of normal caliber. Moderate abdominal aortic atherosclerotic calcification. Bones: No suspicious bone lesion. Prominent degeneration of the lumbar facets and endplates. 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 No suspicious features. Mildly decreased size of enlarged spleen. Dictated by: Mechelle Banks M.D. on 09/24/2024 at 15:16 Approved by: Mechelle Banks M.D. on 09/24/2024 at 15:28
[2024-09-24 13:57] LABS: Estimated Glomerular Filt Rate 30 mL/min (>60)
== END ==
PROVIDERS: PCP Internal Medicine; Referring Provider Urology; Visit Provider Urology
DX: N28.1 Cyst of kidney, acquired (principal); N40.1 Benign prostatic hyperplasia with lower urinary tract symptoms; R35.1 Nocturia; K44.9 Diaphragmatic hernia without obstruction or gangrene; I51.7 Cardiomegaly; R16.1 Splenomegaly, not elsewhere classified; K42.9 Umbilical hernia without obstruction or gangrene; I70.0 Atherosclerosis of aorta; Z95.0 Presence of cardiac pacemaker; Z90.49 Acquired absence of other specified parts of digestive tract
CPT/HCPCS: 36415; 51741; 51798; 74170; 82565; 99213; Q9967

== ENCOUNTER → 2024-09-29 15:14 | Outpatient (CLI) | payer MEDICARE, OTHER, SELFPAY ==
--- NOTE | 2024-09-29 15:17 | DI.RAD.S_ITS ---
PROCEDURE: XR CHEST 2V INDICATIONS: MRI CONTRAINDICATED DUE TO METAL IMPLANT TECHNIQUE: 2 views of the chest were acquired. COMPARISON: [facility], CR, XR CHEST 1V, 08/29/2023, 11:56. FINDINGS: Surgical changes and devices: None. Lungs and pleura: There is moderate diffuse bilateral perihilar prominence of vasculature. Lungs are clear. No pleural effusions or pneumothorax. Mediastinum: Mediastinal contours are normal. Median sternotomy sutures and left anterior chest wall dual lead cardiac pacing device redemonstrated. Heart size is normal. Bones and chest wall: No suspicious bony abnormalities. Soft tissues appear unremarkable. IMPRESSION: Moderate diffuse prominence of bilateral perihilar vasculature. Otherwise, no acute cardiopulmonary abnormality is seen. Dictated by: Mirza Hair M.D. on 09/29/2024 at 21:44 Approved by: Mirza Hair M.D. on 09/29/2024 at 21:45
== END ==
PROVIDERS: PCP Internal Medicine; Referring Provider Specialist; Visit Provider Specialist
DX: Z04.89 Encounter for examination and observation for other specified reasons (principal)
CPT/HCPCS: 71046

== ENCOUNTER 2024-12-05 12:27 | Emergency (ER) | payer MEDICARE, OTHER, SELFPAY ==
[2024-12-05] VITALS (10 sets, daily range): BP systolic 139–183; BP diastolic 67–90; PULSE 59–62; RESP 13–17; TEMP 36.4–36.9; O2SAT 97–100; BMI 26.4
--- NOTE | 2024-12-05 12:44 | DI.RAD.S_ITS ---
PROCEDURE: XR CHEST 1V INDICATIONS: chest pain TECHNIQUE: One view of the chest was acquired. COMPARISON: [facility], CR, XR CHEST 2V, 09/29/2024, 15:16. [facility], CR, XR CHEST 1V, 08/29/2023, 11:56. [facility], CR, XR CHEST 1V, 07/30/2023, 10:22. FINDINGS: Surgical changes and devices: Cardiac pacemaker is seen with pulse generator in the left chest. Sternotomy wires are present. Surgical clips project over the left neck. Lungs and pleura: Lungs are clear. No pleural effusions or pneumothorax. Mediastinum: Mediastinal contours appear normal. Heart size is mildly enlarged. Bones and chest wall: No suspicious bony lesions. Overlying soft tissues appear unremarkable. IMPRESSION: No acute cardiopulmonary abnormality is seen. Approved by: Kip Camarena M.D. on 12/05/2024 at 13:26
--- NOTE | 2024-12-05 12:45 | DI.CT.S_ITS ---
PROCEDURE: CT CERVICAL SPINE WO CON INDICATIONS: GLF TECHNIQUE: Noncontrast 3 mm thick sections acquired from the skull base to the T4 level. Sagittal and coronal reformats were then constructed. For radiation dose reduction, the following was used: automated exposure control, adjustment of mA and/or kV according to patient size. COMPARISON: None. FINDINGS: Image quality: Excellent. Bones: No acute fractures or dislocations. Visualized superior ribs are intact. Multilevel disc space narrowing and degenerative endplate changes. Multilevel uncovertebral joint and facet hypertrophy. Soft tissues: Prevertebral soft tissues are normal in thickness. No paravertebral hematomas. No apical pneumothoraces. Left carotid stent. Mild atherosclerotic calcifications at the right carotid bifurcation. Pacemaker leads are partially imaged. Surgical clips are seen in the left neck. IMPRESSION: 1. No acute displaced fracture or traumatic subluxation. 2. Moderate multilevel spondylosis. Approved by: Kip Camarena M.D. on 12/05/2024 at 13:24
--- NOTE | 2024-12-05 12:45 | DI.CT.S_ITS ---
PROCEDURE: CT HEAD/BRAIN WO CON INDICATIONS: GLF TECHNIQUE: Noncontrast 4.5 mm thick angled axial sections acquired from the foramen magnum to the vertex, with coronal and sagittal reformats. For radiation dose reduction, the following was used: automated exposure control, adjustment of mA and/or kV according to patient size. COMPARISON: [facility], CT, CT HEAD/BRAIN WO CON, 08/29/2023, 12:31. FINDINGS: Image quality: Diagnostic. CSF spaces: Basal cisterns are patent. No extra-axial fluid collections. The ventricles are symmetric in size and shape. Brain: No acute intracranial hemorrhage or mass effect. There is cerebral volume loss, with resultant ventricular and sulcal prominence. There are periventricular and deep white matter chronic small vessel ischemic changes. There is intracranial internal carotid artery atherosclerosis. Skull and face: Mild posterior scalp edema. Calvarium and visualized facial bones appear intact, without suspicious lesions. Sinuses: Visualized sinuses and mastoids are clear. IMPRESSION: No acute intracranial pathology. Approved by: Kip Camarena M.D. on 12/05/2024 at 13:21
--- NOTE | 2024-12-05 12:46 | EKG_ITS ---
[address] [address] Test Date: 2024-12-05 Pat Name: James Medrano III Department: Room: Gender: Male Boot Turner: [place] : 1940 Requested By: Order Number: [id number] Reading MD: Tony Silva Measurements Intervals [place] Rate: 117 P: MN: QRS: 71 QRSD: 184 T: 257 QT: 278 QTc: 387 Interpretive Statements Wide QRS rhythm with frequent ventricular-paced complexes and premature supraventricular complexes Nonspecific intraventricular block Nonspecific T wave abnormality Electronically Signed On 12-05-2024 16:06:55 PDT by Tony Silva
[2024-12-05 12:53] LABS: Add Manual Diff / Slide Review NO; Basophils Absolute Auto 200 /uL (0-100); Basophils Percent Auto 1.5 % (0-2); Eosinophils Absolute Auto 400 /uL (0-450); Eosinophils Percent Auto 3.4 % (2-4); Hematocrit 31.6 % (41-53); Hemoglobin 10.7 g/dL (13.5-17.5); Lymphocytes Absolute Auto 1300 /uL (1100-4500); Lymphocytes Percent Auto 10.3 % (25-40); Mean Corpuscular HGB Conc 33.7 % (30-36); Mean Corpuscular Hemoglobin 31.3 PG (26-34); Mean Corpuscular Volume 92.8 fL (80-100); Monocytes Absolute Auto 500 /uL (0-900); Monocytes Percent Auto 4.4 % (3-14); Neutrophils Absolute Auto 9800 /uL (1500-7000); Neutrophils Percent Auto 80.4 % (50-75); Platelet Count 429 X10^3/uL (150-400); Red Blood Cell Count 3.41 X10^6/uL (4.5-5.9); Red Cell Distribution Width 22.5 % (11.6-14.8); White Blood Cell Count 12.2 X10^3/uL (4.5-11.0)
[2024-12-05 12:55] LABS: INR 1.3 (0.9-1.3); Prothrombin Time 14.5 SECONDS (9.4-12.5)
--- NOTE | 2024-12-05 12:55 | DI.CT.S_ITS ---
PATIENT NAME: DEMETRICE DUMONT III : 1940 EXAM DATE: 12/05/2024 12:[address] CAMI ALLEN DO CC: ED TEMP MODALITY: CT PATIENT TYPE: Out CONTRAST MEDIA: STATION ID: [id number] FLUORO TIME: PROCEDURE: CT HEAD/BRAIN WO CON INDICATIONS: GLF TECHNIQUE: Noncontrast 4.5 mm thick angled axial sections acquired from the foramen magnum to the vertex, with coronal and sagittal reformats. For radiation dose reduction, the following was used: automated exposure control, adjustment of mA and/or kV according to patient size. COMPARISON: [facility], CT, CT HEAD/BRAIN WO CON, 08/29/2023, 12:31. FINDINGS: Image quality: Diagnostic. CSF spaces: Basal cisterns are patent. No extra-axial fluid collections. The ventricles are symmetric in size and shape. Brain: No acute intracranial hemorrhage or mass effect. There is cerebral volume loss, with resultant ventricular and sulcal prominence. There are periventricular and deep white matter chronic small vessel ischemic changes. There is intracranial internal carotid artery atherosclerosis. Skull and face: Mild posterior scalp edema. Calvarium and visualized facial bones appear intact, without suspicious lesions. Sinuses: Visualized sinuses and mastoids are clear. IMPRESSION: No acute intracranial pathology. Approved by: Kip Camarena M.D. on 12/05/2024 at 13:21
[2024-12-05 12:57] LABS: PTT Partial Thromboplastin Tim 37 SECONDS (25.1-36.5)
--- NOTE | 2024-12-05 12:57 | PC.NURSE ---
large laceration noted on back of pt's head. EMS dressing removed and replaced with nonstick gauze, kerlix and coban.
[2024-12-05 13:02] LABS: Alanine Aminotransferase 34 IU/L (<50); Albumin 5.4 g/dL (3.5-5.0); Albumin Globulin Ratio 2.1 (1.0-2.8); Alkaline Phosphatase 74 U/L (38-126); Anisocytosis 2+; Aspartate Aminotransferase 70 IU/L (17-59); BUN Creatinine Ratio 13.4 (6-22); Bilirubin Total 2.4 mg/dL (0.2-1.3); Blood Urea Nitrogen 37 mg/dL (9-20); Calcium 10.2 mg/dL (8.4-10.2); Carbon Dioxide 22 mmol/L (22-32); Chloride 106 mmol/L (98-107); Creatine Kinase 130 U/L (55-170); Estimated Glomerular Filt Rate 22 mL/min (>60); Globulin 2.6 g/dL (1.7-4.1); Glucose 115 mg/dL (70-99); HEMOLYSIS < 15 (0-50); Lipase 107 U/L (23-300); Poikilocytosis 1+; Potassium 4.7 mmol/L (3.4-5.1); Sodium 141 mmol/L (137-145)
[2024-12-05 13:13] LABS: NT-proBNP (BNP-Adult 18+) 7180 pg/mL (<450); Troponin I 0.022 ng/mL (0.01-0.034)
--- NOTE | 2024-12-05 16:16 | ED_ITS ---
HPI - General Adult General Chief complaint: Trauma Stated complaint: GLF/hit head/takes aspirin Time Seen by Provider: 12/05/24 14:55 Source: family and EMS Mode of arrival: EMS Limitations: no limitations History of Present Illness HPI narrative: 84-year-old male on aspirin, hypertension, dyslipidemia, BPH, patient has had prior mitral valve replaced 2013 there has been discussion that he needs to have it replaced again with plan for TAVR, he was had pacemaker, Watchman device, carotid stent and cholecystectomy. Patient is on aspirin 81 mg daily. Patient does not recall exactly what happened but states he had gone down to get the garbage cans after getting home, there isn't inclined to their driveway and he was speaking with a neighbor who reportedly saw him stepped back and fall. Patient was not in talking to the neighbor and they called 911. came out and saw him he does not recall talking to the neighbor. Sounds like there is a period of time that he was missing. They note he was had some dizziness on and off has been worse since he had a change to his medications but has not had any syncopal episode. He describes a headache, denies any neck or back pain, no chest pain, little bit of normal shortness of breath which he states has not changed. No nausea or vomiting. No issues with bowel movements or urination. No incontinence of bowel or bladder. No new swelling of extremities. He denies injuries elsewhere. States his tetanus is up-to-date. He was on aspirin 81 mg daily, atorvastatin, Coreg, Jardiance, losartan, spironolactone, tamsulosin daily. notes the spironolactone, Jardiance and losartan are new in the past month. No known drug allergies. Follows with Dr. Clayton for his primary care. Follows with Dr. 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 No tobacco, alcohol or recreational drugs. Related Data Home Medications Medication Instructions Recorded Confirmed aspirin 81 mg tablet,delayed 81 mg PO DAILY 08/17/23 09/24/24 release (Adult Low Dose Aspirin) multivitamin 1 tab PO DAILY 08/17/23 09/24/24 carvedilol 3.125 mg tablet 3.125 mg PO BID 03/31/24 09/24/24 pantoprazole 40 mg tablet,delayed 40 mg PO DAILY 03/31/24 09/24/24 release atorvastatin 20 mg tablet mg PO DAILY 09/16/24 09/24/24 dexamethasone 2 mg tablet mg PO 09/16/24 09/24/24 momelotinib 200 mg tablet (Ojjaara) mg PO DAILY 09/16/24 09/24/24 ergocalciferol (vitamin D2) 50 mcg 50 mcg PO DAILY 09/24/24 09/24/24 (2,000 unit) capsule ferrous gluconate 240 mg (27 mg 240 mg PO DAILY 09/24/24 09/24/24 iron) tablet (Ferate) magnesium 200 mg tablet 200 mg PO DAILY 09/24/24 09/24/24 Previous Rx's Medication Instructions Recorded tamsulosin 0.4 mg capsule 0.8 mg (2 x 0.4 mg) PO DAILY #180 09/17/24 caps Allergies Allergy/AdvReac Type Severity Reaction Status Date / Time No Known Drug Allergies Allergy Verified 09/16/24 08:05 Review of Systems Review of Systems ROS Unobtainable: All systems reviewed & are unremarkable except as noted in HPI and below Patient History Medical History History of asthma Carotid artery occlusion Anesthesia complication CKD (chronic kidney disease) Nonsustained ventricular tachycardia GERD (gastroesophageal reflux disease) TIA (transient ischemic attack) Amaurosis fugax of right eye LAVINIA (obstructive sleep apnea) Pacemaker (07/09/23) Hypertension Dyslipidemia Surgical History Hx of cholecystectomy H/O: vasectomy Cataract extraction status, right eye History of open heart surgery H/O mitral valve repair Family History Father Cancer Mother Cancer Social History marital status: number of children: 2 household members: spouse lives independently: Yes occupational status: previously employed Smoking Status: Never smoker alcohol intake: current substance use type: does not use caffeine: Yes Type(s) of exercise: regular exercise frequency: 3-4 times per week duration: 45-60 minutes/day Smoking Status: Never smoker alcohol intake frequency: 0-2 drinks per day Exam Narrative Exam Narrative: GEN: Patient appears in mild distress. HEAD: Patient has a posterior scalp laceration that is about 3 cm in length with slight stellate small laceration is a portion, no galea noted, no raccoon/Gómez sign. NECK: Nontender, painless range of motion, trachea midline Nine Nexus criteria, no midline line tenderness, distracting injury, altered mental status, neuro deficit, recent EtOH. EYES: PERRLA, EOMI ENT: External inspection normal, trachea is midline, TM's are normal no hemotypanum, Nares are clear, no septal hematoma, no dental or oral injury, airway is normal and with normal occlusion, No bony tenderness RESP: Chest is nontender and has symmetric movement, no ecchymosis, breath sounds are normal no crackles, wheezes or rales CVS: Heart sounds are normal, no murmur noted, No JVD. ABG/GI: Nontender, soft, normal bowel sounds, no distention, no organomegaly, pelvic rock is neck NEURO: Oriented AOx3, neuro is grossly intact, sensation and motor is normal all 4 extremities moving, cranial nerves II through XII are intact, GCS is 15 PSYCH: Normal mood and affect SKIN: Intact, warm and dry, no crepitus and without decubitus BACK: No CVA tenderness, no vertebral tenderness, no step-off's, no crepitus EXT: Atraumatic, hips are nontender, no pedal edema, normal color and temperature, normal range of motion of extremities with normal tendon exam, 2+ pulses in all four extremities Initial Vital Signs Initial Vital Signs: Vital Signs Temperature 97.6 F 12/05/24 12:30 Pulse Rate 60 12/05/24 12:30 Respiratory Rate 16 12/05/24 12:30 Blood Pressure 144/72 H 12/05/24 12:30 Pulse Oximetry 99 12/05/24 12:30 Oxygen Delivery Method Room Air 12/05/24 12:30 Procedures Laceration Repair Laceration 1: Site: scalp Size (cm): 4.2 Description: stellate Depth: simple, single layer Local Anesthetic: other anesthetic (Topical prilocaine) Pre-repair: wound explored, irrigated extensively and deep structures intact Skin layer closed with: ofelia (#8) Technique: simple, interrupted Scores Vincentian CT Head Rule Age <16 years old: No Patient on blood thinners: Yes (Aspirin) Seizure after injury: No Exclusion: Patient meets exclusion criteria GCS < 15 at 2 hr post trauma: No Suspected open or depressed skull fracture: No Any sign of basilar skull fracture (hemotympanum, raccoon eyes, Gómez's sign, CSF santo-/rhinorrhea): No Two or more episodes of vomiting: No Age greater or equal to 65 years: Yes Retrograde amnesia to the event greater or equal to 30 min: Yes Dangerous Mechanism (pedestrian vs. mv, occupant ejected from mv, fall from >3 ft or > 5 stairs): No Recommendation: Consider CT. The Vincentian Head CT Rule cannot rule out need for Imaging. GCS [place] coma scale eye opening: Spontaneous Matty coma scale verbal response: Orientated [place] coma scale motor response: Obey commands [place] coma scale total score: 15 Nexus Score for C-Spine Focal Neurologic deficit present: No Midline spinal tenderness present: No Altered level of conciousness present: No Intoxication present: No Distracting Injury Present: No Nexus Criteria for C-spine: 0 Course Orders Ordered: ED Orders 12/05/24 12:37 Complete Blood Count AUTO DIFF Stat Comprehensive Metabolic Panel Stat Lipase Stat Magnesium Stat NT-proBNP (BNP-Adult 18+) Stat PTT Partial Thromboplastin M[place]za Stat Prothrombin Time INR Stat Troponin & CK Cardiac Panel Stat 12/05/24 12:44 CT head/brain wo con Stat XR chest 1V Stat EKG-12 Lead Stat 12/05/24 12:45 CT cervical spine wo con Stat Discontinued Medications Aspirin (Aspirin 81 Mg Chew Tab) 324 mg PO NOW ONE Stop: 12/05/24 12:45 Last Admin: 12/05/24 14:13 Dose: Not Given Documented By: JESSICA Bacitracin (Bacitracin Oint 0.9 Gm Pckt) 1 applic TOP NOW ONE Stop: 12/05/24 17:24 Last Admin: 12/05/24 17:26 Dose: 1 applic Documented By: JESSICA Lidocaine/Prilocaine (Lidocaine/Prilocaine 5 Gm) 5 gm TOP NOW ONE Stop: 12/05/24 16:46 Last Admin: 12/05/24 17:14 Dose: 5 gm Documented By: JESSICA Vital Signs Vital signs: Vital Signs - 8 hr 12/05/24 12:30 12/05/24 14:59 12/05/24 15:00 Temperature 97.6 F Pulse Rate 60 61 60 Respiratory Rate 16 13 13 Blood Pressure 144/72 H Pulse Oximetry 99 99 99 Oxygen Delivery Method Room Air 12/05/24 15:00 12/05/24 15:30 12/05/24 15:30 Temperature Pulse Rate 60 Respiratory Rate 14 Blood Pressure 142/70 H 146/70 H Pulse Oximetry 98 Oxygen Delivery Method 12/05/24 16:00 12/05/24 16:00 12/05/24 16:30 Temperature Pulse Rate 61 Respiratory Rate 16 Blood Pressure 139/67 152/80 H Pulse Oximetry 97 Oxygen Delivery Method 12/05/24 16:30 12/05/24 16:50 12/05/24 16:50 Temperature Pulse Rate 59 L 60 Respiratory Rate 17 Blood Pressure 183/90 H Pulse Oximetry 99 100 Oxygen Delivery Method 12/05/24 17:00 12/05/24 17:00 12/05/24 17:30 Temperature Pulse Rate 60 62 Respiratory Rate Blood Pressure 143/70 H Pulse Oximetry 99 98 Oxygen Delivery Method 12/05/24 17:34 Temperature 98.4 F Pulse Rate 60 Respiratory Rate 16 Blood Pressure 139/73 Pulse Oximetry 99 Oxygen Delivery Method Room Air Medical Decision Making Lab Data 12/05/24 12:37 12/05/24 12:37 Labs: Lab Results 12/05/24 Range/Units 12:37 WBC 12.2 H (4.5-11.0) X10^3/uL RBC 3.41 L (4.5-5.9) X10^6/uL Hgb 10.7 L (13.5-17.5) g/dL Hct 31.6 L (41-53) % MCV 92.8 (80-100) fL MCH 31.3 (26-34) PG MCHC 33.7 (30-36) % RDW 22.5 H (11.6-14.8) % Plt Count 429 H (150-400) X10^3/uL Neut % (Auto) 80.4 H (50-75) % Lymph % (Auto) 10.3 L (25-40) % Louisa % (Auto) 4.4 (3-14) % Eos % (Auto) 3.4 (2-4) % Baso % (Auto) 1.5 (0-2) % Neut # (Auto) 9800 H (2376-9358) /uL Lymph # (Auto) 1300 (9008-2213) /uL Louisa # (Auto) 500 (0-900) /uL Eos # (Auto) 400 (0-450) /uL Baso # (Auto) 200 H (0-100) /uL RBC Morphology Not Reportable Poikilocytosis 1+ H Anisocytosis 2+ H PT 14.5 H (9.4-12.5) SECONDS INR 1.3 (0.9-1.3) APTT 37 H (25.1-36.5) SECONDS Sodium 141 (137-145) mmol/L Potassium 4.7 (3.4-5.1) mmol/L Chloride 106 (98-107) mmol/L Carbon Dioxide 22 (22-32) mmol/L BUN 37 H (9-20) mg/dL Creatinine 2.77 H (0.66-1.25) mg/dL Estimated GFR 22 L (>60) mL/min BUN/Creatinine Ratio 13.4 (6-22) Glucose 115 H (70-99) mg/dL Calcium 10.2 (8.4-10.2) mg/dL Magnesium 2.0 (1.6-2.3) mg/dL Total Bilirubin 2.4 H (0.2-1.3) mg/dL AST 70 H (17-59) IU/L ALT 34 (<50) IU/L Alkaline Phosphatase 74 (38-126) U/L Total Creatine Kinase 130 (55-170) U/L Troponin I 0.022 (0.01-0.034) ng/mL NT-Pro-B Natriuret Pep 7180 H (<450) pg/mL Total Protein 8.0 (6.3-8.2) g/dL Albumin 5.4 H (3.5-5.0) g/dL Globulin 2.6 (1.7-4.1) g/dL Albumin/Globulin Ratio 2.1 (1.0-2.8) Lipase 107 (23-300) U/L ECG Data Attestation: I personally reviewed and interpreted this ECG as follows: Interpretation: Paced rhythm with a rate of 117, QRS of 184, QTC of 387. Patient was prior from 09/30/2022 which shows at that time sinus rhythm with sinus arrhythmia occasional PVCs. MDM Narrative Medical decision making narrative: EKG shows paced rhythm. Labs show white count of 12.2 hemoglobin of 10.7 appears consistent with priors from October and August of 2023 platelets of 429, INR 1.3 creatinine 2.77 up from 2.15 in September 2024 BUN of 37 electrolytes are appropriate glucose is 115 bilirubin is 2.4 AST 70 ALT is okay at 34 alk-phos is 74 her lipase is [address] shows no acute intracranial pathology. CT cervical spine shows no acute displaced fracture or traumatic subluxation, moderate multilevel spondylosis. Chest x-ray shows no acute cardiopulmonary abnormality. Patient has a stellate laceration was repaired with ofelia. Discussed topical lidocaine versus injecting lidocaine patient prefers topical. Was repaired Patient has aspirin daily no other anticoagulants possible mechanical ground level fall per report through family but was not witnessed by family themselves. There was possibly other bystanders that were present. There was a short period where patient does not recall even the note he talked to the neighbor. Medics noted patient was hypotensive with standing but was normotensive lying. He has not had any significant vital sign changes here he was paced. His workup shows anemia but consistent with priors creatinine 2.77 today with GFR 22 was elevated on his last check in the 25 range with his GFR. Does have elevated bilirubin but unlikely to be a source BNP is 7180. They note he has a mitral valve that he had repair but it was worsening again and there was discussion about having TAVR. Patient does not appear to be clinically significantly fluid overloaded last BNP is from almost 2 years ago. With a negative chest x-ray showing no pulmonary edema but not adjust his medications currently but he has not appointment this upcoming week to have labs drawn with Oncology and they can re-evaluate his creatinine as well. Patient ambulated here in the department. He tolerated well. Laceration was repaired here in the department. Discussed return precautions all questions answered. Discharge Plan Departure Patient Disposition: Home Clinical Impression: Laceration of scalp, Fall Activity Restrictions/Additional Instructions: Your labs today show you are anemic but appear consistent with priors from October. Your creatinine is elevated from September of 2024 at 2.77 but sounds like it is consistent with your most recent check. I would share this information with your physician particularly because they have added new medications and these can sometimes affect your renal function. You can take acetaminophen up to a 1000 mg every 6 hours as needed for headaches. Wound Care: Keep wound(s) clean and dry. Wash daily with soap and water only. Do not use over the counter products (alcohol or peroxide)on the wounds unless instructed by a physician. If wound condition worsens (increased/expanding redness, developing fluid blisters, or worsening pain), either contact your doctor for an urgent re- assessment , or return to the Emergency Department. Return to the ED, urgent care, or visit a primary care doctor for removal of ofelia in 7-10 days. Return if severe headaches, sudden changes to mentation, vomiting, new numbness tingling or weakness, episodes of passing out, new chest pain or shortness of breath, fever greater than 100.4 Fahrenheit, increased swelling, increasing pain or worsening symptoms such as increased discharge or spreading redness. Prescriptions: No Action Ojjaara 200 mg tablet PO DAILY dexamethasone 2 mg tablet PO Patient Comments: [NO ORIGINAL SIG] atorvastatin 20 mg tablet PO DAILY tamsulosin 0.4 mg capsule 0.8 mg PO DAILY Qty: 180 0RF multivitamin Tablet 1 tab PO DAILY aspirin [Adult Low Dose Aspirin] 81 mg tablet,delayed release (DR/EC) 81 mg PO DAILY pantoprazole 40 mg tablet,delayed release (DR/EC) 40 mg PO DAILY carvedilol 3.125 mg tablet 3.125 mg PO BID Rx Instructions: must administer with a meal/food ergocalciferol (vitamin D2) 50 mcg (2,000 unit) capsule 50 mcg PO DAILY ferrous gluconate [Ferate] 240 mg (27 mg iron) tablet 240 mg PO DAILY magnesium 200 mg tablet 200 mg PO DAILY Referrals: Latesha Clayton MD [Primary Care Provider] - Stand Alone Forms: Patient Portal/API/Survey
[2024-12-05] MEDS: LIDOCAINE/PRILOCAINE 5 GM TOP (17:14)
[2024-12-05] MEDS: BACITRACIN OINT 0.9 GM PCKT 1 APPLIC TOP (17:26)
== END 2024-12-05 17:39 | disposition home or self-care (01) ==
PROVIDERS: Emergency Provider Emergency Medicine; PCP Internal Medicine
DX: S01.01XA Laceration without foreign body of scalp, initial encounter (principal); R41.0 Disorientation, unspecified; R42 Dizziness and giddiness; I10 Essential (primary) hypertension; W18.30XA Fall on same level, unspecified, initial encounter; Z79.82 Long term (current) use of aspirin; Z95.2 Presence of prosthetic heart valve; Z95.0 Presence of cardiac pacemaker
CPT/HCPCS: 12002; 36415; 70450; 71045; 72125; 80053; 82550; 83690; 83735; 83880; 84484; 85025; 85610; 85730; 93005; 99284

== ENCOUNTER 2024-12-15 10:56 | Emergency (ER) | payer MEDICARE, OTHER, SELFPAY ==
[2024-12-15 10:59] VITALS: BP 119/60; PULSE 72; RESP 18; TEMP 36.6; O2SAT 100; BMI 26.4
--- NOTE | 2024-12-15 11:48 | ED_ITS ---
HPI - Recheck/Abnormal Lab/Rx <Cameron Vickers PA-C - Last Filed: 12/15/24 12:04> General Chief Complaint: Recheck/Abnormal Lab/Rx Stated Complaint: Needs stitches removed Time Seen by Provider: 12/15/24 11:14 Source: patient Mode of arrival: Ambulatory History of Present Illness HPI narrative: 84-year-old male presents to the ED for staple removal from the scalp. Patient had 8 ofelia put in to repair a scalp laceration. Patient states that it seems to have healed well without any complications. Patient is here today for removal of ofelia. Related Data Home Medications Medication Instructions Recorded Confirmed aspirin 81 mg tablet,delayed 81 mg PO DAILY 08/17/23 09/24/24 release (Adult Low Dose Aspirin) multivitamin 1 tab PO DAILY 08/17/23 09/24/24 carvedilol 3.125 mg tablet 3.125 mg PO BID 03/31/24 09/24/24 pantoprazole 40 mg tablet,delayed 40 mg PO DAILY 03/31/24 09/24/24 release atorvastatin 20 mg tablet mg PO DAILY 09/16/24 09/24/24 dexamethasone 2 mg tablet mg PO 09/16/24 09/24/24 momelotinib 200 mg tablet (Ojjaara) mg PO DAILY 09/16/24 09/24/24 ergocalciferol (vitamin D2) 50 mcg 50 mcg PO DAILY 09/24/24 09/24/24 (2,000 unit) capsule ferrous gluconate 240 mg (27 mg 240 mg PO DAILY 09/24/24 09/24/24 iron) tablet (Ferate) magnesium 200 mg tablet 200 mg PO DAILY 09/24/24 09/24/24 Previous Rx's Medication Instructions Recorded tamsulosin 0.4 mg capsule 0.8 mg (2 x 0.4 mg) PO DAILY #180 09/17/24 caps Allergies Allergy/AdvReac Type Severity Reaction Status Date / Time No Known Drug Allergies Allergy Verified 09/16/24 08:05 Review of Systems <Cameron Vickers PA-C - Last Filed: 12/15/24 12:04> Constitutional Constitutional: Denies chills, Denies fatigue, Denies fever(s), Denies frequent falls, Denies lethargy and Denies weakness Eyes Eyes: Denies change in vision, Denies eye discharge, Denies irritation and Denies loss of vision ENT Ears, Nose, Mouth, and Throat: Denies change in voice, Denies dizziness, Denies neck pain, Denies sore throat and Denies throat swelling Cardiovascular Cardiovascular: Denies chest pain, Denies irregular heart rhythm, Denies lightheadedness, Denies palpitations, Denies dyspnea, Denies dyspnea on exertion and Denies orthopnea Respiratory Respiratory: Denies cough, Denies dyspnea, Denies dyspnea on exertion and Denies wheezing Gastrointestinal Gastrointestinal: Denies abdominal pain, Denies change in bowel habits, Denies diarrhea, Denies nausea and Denies vomiting Musculoskeletal Musculoskeletal: Denies neck pain and Denies numbness Integumentary/Breasts Skin/Breast: Denies pruritus, Denies erythema, Denies rash and Denies wounds Comments: ofelia in scalp laceration need to be removed today Neurologic Neurologic: Denies behavioral changes, Denies confusion, Denies dizziness, Denies frequent falls, Denies loss of vision, Denies numbness and Denies weakness Psychiatric Psychiatric: Denies anxiety, Denies behavioral changes, Denies confusion, Denies depression, Denies homicidal ideation and Denies suicidal ideation Endocrine Endocrine: Denies fatigue, Denies flushing and Denies palpitations Hematologic/Lymphatic Hematologic/Lymphatic: Denies easy bruising Allergic/Immunologic Allergic/Immunologic: Denies urticaria, Denies throat swelling and Denies wheezing Patient History <Cameron Vickers PA-C - Last Filed: 12/15/24 12:04> Medical History History of asthma Carotid artery occlusion Anesthesia complication CKD (chronic kidney disease) Nonsustained ventricular tachycardia GERD (gastroesophageal reflux disease) TIA (transient ischemic attack) Amaurosis fugax of right eye LAVINIA (obstructive sleep apnea) Pacemaker (07/09/23) Hypertension Dyslipidemia Surgical History Hx of cholecystectomy H/O: vasectomy Cataract extraction status, right eye History of open heart surgery H/O mitral valve repair Family History Father Cancer Mother Cancer Social History marital status: number of children: 2 household members: spouse lives independently: Yes occupational status: previously employed alcohol intake: current substance use type: does not use caffeine: Yes Type(s) of exercise: regular exercise frequency: 3-4 times per week duration: 45-60 minutes/day alcohol intake frequency: 0-2 drinks per day Exam <Cameron Vickers PA-C - Last Filed: 12/15/24 12:04> Narrative Exam Narrative: Const General:?cooperative, healthy appearing and comfortable [facility] Head: 8 ofelia are noted in the scalp. The wound appears to have healed well with no signs of infection or other complications. Ears:?hearing grossly normal bilaterally Nose:?external nose normal Face and sinus:?normal facial exam and sinuses nontender Mouth:?oral mucosae normal Throat:?posterior oropharynx normal Eyes General:?appearance normal, both eyes and all related structures Neck Neck:?normal visual inspection and no lymphadenopathy noted Resp Effort & Inspection:?normal respiratory effort Auscultation:?clear to auscultation bilaterally Cardio Rate:?regular rate Rhythm:?regular rhythm Neuro General:?patient alert, patient awake and patient oriented x3 Initial Vital Signs Initial Vital Signs: Vital Signs Temperature 97.8 F 12/15/24 10:59 Pulse Rate 72 12/15/24 10:59 Respiratory Rate 18 12/15/24 10:59 Blood Pressure 119/60 12/15/24 10:59 Pulse Oximetry 100 12/15/24 10:59 Oxygen Delivery Method Room Air 12/15/24 10:59 <Debby Cooley DO - Last Filed: 12/21/24 23:44> Initial Vital Signs Initial Vital Signs: Vital Signs Temperature 97.8 F 12/15/24 10:59 Pulse Rate 72 12/15/24 10:59 Respiratory Rate 18 12/15/24 10:59 Blood Pressure 119/60 12/15/24 10:59 Pulse Oximetry 100 12/15/24 10:59 Oxygen Delivery Method Room Air 12/15/24 10:59 Course <Cameron Vickers PA-C - Last Filed: 12/15/24 12:04> Vital Signs Vital signs: Vital Signs - 8 hr 12/15/24 10:59 Temperature 97.8 F Pulse Rate 72 Respiratory Rate 18 Blood Pressure 119/60 Pulse Oximetry 100 Oxygen Delivery Method Room Air <Debby Cooley DO - Last Filed: 12/21/24 23:44> Vital Signs Vital signs: Vital Signs - 8 hr 12/15/24 10:59 Temperature 97.8 F Pulse Rate 72 Respiratory Rate 18 Blood Pressure 119/60 Pulse Oximetry 100 Oxygen Delivery Method Room Air MDM - Recheck/Abnormal Lab/Rx <Cameron Vickers PA-C - Last Filed: 12/15/24 12:04> MDM Narrative Medical decision making narrative: 84-year-old male presents to the ED for staple removal from the scalp. 8 ofelia are visualized on the scalp. The laceration appears to have healed well without any signs of infection. [place] were removed without complication. Patient tolerated the procedure well. ED return precautions discussed with patient. Patient verbalized understanding. Medical records reviewed: Yes Discharge Plan Departure Patient Disposition: Home Clinical Impression: Encounter for staple removal Instructions: DI for Suture Removal Activity Restrictions/Additional Instructions: You were seen in the emergency department for removal of ofelia from the scalp. It appears that your wound has healed well, you ofelia were removed. Return to the ED if you note any signs of infection such as worsening redness, warmth, pain, swelling, discharge. Prescriptions: No Action Ojjaara 200 mg tablet PO DAILY dexamethasone 2 mg tablet PO Patient Comments: [NO ORIGINAL SIG] atorvastatin 20 mg tablet PO DAILY tamsulosin 0.4 mg capsule 0.8 mg PO DAILY Qty: 180 0RF multivitamin Tablet 1 tab PO DAILY aspirin [Adult Low Dose Aspirin] 81 mg tablet,delayed release (DR/EC) 81 mg PO DAILY pantoprazole 40 mg tablet,delayed release (DR/EC) 40 mg PO DAILY carvedilol 3.125 mg tablet 3.125 mg PO BID Rx Instructions: must administer with a meal/food ergocalciferol (vitamin D2) 50 mcg (2,000 unit) capsule 50 mcg PO DAILY ferrous gluconate [Ferate] 240 mg (27 mg iron) tablet 240 mg PO DAILY magnesium 200 mg tablet 200 mg PO DAILY Referrals: Latesha Clayton MD [Primary Care Provider] - Stand Alone Forms: Patient Portal/API/Survey ED Sign-out <Debby Cooley DO - Last Filed: 12/21/24 23:44> Cosign ED Attending Cosignature Attestation: I was available for consultation.
[2024-12-15 12:03] VITALS: BP 121/62; PULSE 72; RESP 18; TEMP 36.7; O2SAT 99
== END 2024-12-15 12:03 | disposition home or self-care (01) ==
PROVIDERS: Emergency Provider Student in an Organized Health Care Education/Training Program; PCP Internal Medicine
DX: Z48.1 Encounter for planned postprocedural wound closure (principal)
CPT/HCPCS: 99281

== ENCOUNTER → 2025-04-27 13:38 | Outpatient (CLI) | payer MEDICARE, OTHER, SELFPAY ==
--- NOTE | 2025-04-27 13:39 | DI.ECHO.S_ITS ---
[facility] : : [address] : : [place] : : [id number] : : Phone: [phone] Echocardiogram Report + + :Name: DEMETRICE DUMONT Study Date: 04/27/2025 Height: 72 in : :[facility] ReadingLocation: Weight: 195 lb : : Gender: Male BSA: 2.1 m2 : :: 1940 Age: 85 yrs BP: 136/81 mmHg: :Reason For Study: S/P MITRAL VALVE CLIP : :Ordering Physician: JOSH, : :JR Performed By: Soco Hinojosa : :Referring: JR MORENO : + + Interpretation Summary Left ventricular size is at the upper limits of normal. The ejection fraction is estimated to be 40-45%. LV end-diastolic dimension 5.7 cm. Previously 6.1 cm. Previous LV ejection fraction reported to be 45 to 50%. The right ventricle is moderately dilated. The right ventricular systolic function is normal. There is a pacemaker lead in the right ventricle. Previous history of mitral valve repair with mitral annular ring. Recently patient had mitral valve clip for worsening MR. A mitral valve clip is present. There is mild mitral regurgitation. Compared to the prior echo study, there has been a decrease in the severity of mitral regurgitation. The mitral valve mean gradient is 8.5 mmHg. Moderate MS. The tricuspid annulus is dilated. There is mild to moderate tricuspid regurgitation. The right ventricular systolic pressure is estimated to be at least 43 mmHg based on an estimated right atrial pressure of 3 mm Hg. Procedure: A two-dimensional transthoracic echocardiogram with color flow and Doppler was performed. The study quality was technically adequate. Comparison is made with the echocardiogram of 12/10/2024. The patient has a paced rhythm. The heart rate ranged between 60-77 bpm during the study. Rhythm sinus as well as intermittent ventricular paced rhythm. Left Ventricle: Left ventricular wall thickness is mildly increased. Left ventricular size is at the upper limits of normal. There is no thrombus. The ejection fraction is estimated to be 40-45%. Septal motion is consistent with post-operative state. Septal motion is consistent with conduction abnormality. There is mild to moderate global hypokinesis of the left ventricle. Diastolic function could not be accurately assessed due to confounding valvular disease. Right Ventricle: The right ventricle is moderately dilated. There is a pacemaker lead in the right ventricle. The right ventricular systolic function is normal. Atria: The left atrium is severely dilated. There has been no significant change since the previous study. The right atrium is severely dilated. There is no Doppler evidence for an interatrial shunt. Mitral Valve: A mitral valve clip is present. Previous history of mitral valve repair with mitral annular ring. Recently patient had mitral valve clip. The mitral valve mean gradient is 8.5 mmHg. There is mild mitral regurgitation. Compared to the prior echo study, there has been a decrease in the severity of mitral regurgitation. Aortic Valve: The aortic valve is trileaflet. The aortic valve opens well. The aortic valve is slightly calcified. There is no aortic valve stenosis. There is trace aortic regurgitation. Tricuspid Valve: The tricuspid valve leaflets are thin and pliable. The tricuspid annulus is dilated. There is mild to moderate tricuspid regurgitation. The right ventricular systolic pressure is estimated to be at least 43 mmHg based on an estimated right atrial pressure of 3 mm Hg. Pulmonic Valve: The pulmonic valve leaflets are thin and pliable; valve motion is normal. There is mild to moderate pulmonic regurgitation. Great Vessels: The aortic root is normal size. The dimensions of the ascending aorta are normal. The IVC is of normal diameter and collapses greater than 50% with a sniff. This suggests a low right atrial pressure of 3 mm Hg. Pericardium/ Pleura There is no pericardial effusion. There is no pleural effusion. MMode/2D Measurements & Calculations LVIDd: 5.7 cm LVOT diam: 2.3 cm LVIDs: 4.3 cm Ao root diam: 3.5 cm FS: 24.5 % asc Aorta Diam: 3.5 cm IVSd: 1.3 cm Ao Arch Diam (Prox Trans): 3.0 cm LVPWd: 1.0 cm LV carrizales. diameter/BSA (cm/m^2): 2.7 LV sys. diameter/BSA (cm/m^2): 2.0 LA A2 area: 29.7 cm2 RA long axis: 6.1 cm LA A4 area: 29.8 cm2 RA area: 28.5 cm2 LA length (vol): 6.3 cm RA vol: 113.8 ml LA vol: 120.0 ml RA : 54.0 ml/m2 LA vol index: 56.9 ml/m2 IVC diam: 2.0 cm RVD1 (basal): 5.3 cm TAPSE: 2.5 cm Doppler Measurements & Calculations Ao V2 max: 144.5 cm/sec LVOT Max Brooks: 65.5 cm/sec Ao V2 mean: 99.5 cm/sec LV V1 max P.7 mmHg Ao max P.4 mmHg LV V1 VTI: 15.6 cm Ao mean P.3 mmHg LUZ(I,D): 2.1 cm2 Ao V2 VTI: 30.1 cm LUZ(V,D): 1.8 cm2 sev ratio: 0.52 LUZ indexed to BSA (cm^2/m^2): 0.99 Med Peak E' Brooks: 4.9 cm/sec TR max brooks: 314.5 cm/sec Lat Peak E' Brooks: 3.3 cm/sec TR max P.6 mmHg MVA(VTI): 0.83 cm2 PA V2 max: 85.3 cm/sec PA V2 mean: 54.7 cm/sec PA mean P.4 mmHg PA pr(Accel): 25.1 mmHg MV V2 mean: 126.4 cm/sec SV(LVOT): 63.1 ml MV mean P.5 mmHg MV V2 VTI: 75.9 cm Reading Physician:01:14 PM
== END ==
LOC: ECHO 13:38
PROVIDERS: PCP Internal Medicine; Referring Provider Internal Medicine; Visit Provider Internal Medicine Cardiovascular Disease
DX: I08.1 Rheumatic disorders of both mitral and tricuspid valves (principal); Z98.890 Other specified postprocedural states; Z95.818 Presence of other cardiac implants and grafts
CPT/HCPCS: 93306

== ENCOUNTER → 2025-05-25 09:52 | Outpatient (CLI) | payer MEDICARE, OTHER, SELFPAY ==
[2025-05-25 11:14] LABS: Prostate Specific Antigen 1.92 ng/mL (0.10-4.00)
== END ==
PROVIDERS: PCP Internal Medicine; Referring Provider Internal Medicine; Visit Provider Urology
DX: N40.1 Benign prostatic hyperplasia with lower urinary tract symptoms (principal)
CPT/HCPCS: 36415; 84153

== ENCOUNTER 2025-06-22 13:54 | Emergency (ER) | payer MEDICARE, OTHER, SELFPAY ==
[2025-06-22 14:15] VITALS: BP 116/77; PULSE 64; RESP 16; TEMP 36.6; O2SAT 99; BMI 25.7
--- NOTE | 2025-06-22 14:28 | EKG_ITS ---
[facility] [address] [place] [address] Test Date: 2025-06-22 Pat Name: James Medrano III Department: [facility] Room: Gender: Male Validation Technician: AZRA : 1940 Requested By: Order Number: [id number] Reading MD: Jose Noonan MD Measurements Intervals Zwingle Rate: 74 P: 65 GA: 250 QRS: 63 QRSD: 102 T: -32 QT: 398 QTc: 441 Interpretive Statements Sinus rhythm with 1st degree AV block with occasional premature ventricular complexes ST & T wave abnormality, consider inferolateral ischemia Electronically Signed On 06-23-2025 6:46:35 PST by Jose Noonan MD
--- NOTE | 2025-06-22 14:31 | ED.ABDPAIN ---
HPI - Abdominal Pain <Art Ureña MD - Last Filed: 06/25/25 08:37> General Chief Complaint: Abdominal Pain Stated Complaint: lower abd pain x2 days Time Seen by Provider: 06/22/25 14:20 Source: patient Mode of arrival: Ambulatory History of Present Illness HPI narrative: Patient brought here with for complaints of generalized abdominal pain mostly upper half crampy distended discomfort. Ongoing 2 days. Last bowel movement 2 days ago. Had 1 episode of nonbloody emesis. Has not had any flatus in the past 2 days. History of cholecystectomy. History of reducible periumbilical hernia. No urinary complaints. Patient does have history of atrial fibrillation with ablation and Watchman. Related Data Home Medications ?Medication ?Instructions ?Recorded ?Confirmed aspirin 81 mg tablet,delayed 81 mg PO DAILY 08/17/23 06/01/25 release (Adult Low Dose Aspirin) multivitamin 1 tab PO DAILY 08/17/23 06/01/25 momelotinib 200 mg tablet (Ojjaara) mg PO DAILY 09/16/24 06/01/25 ergocalciferol (vitamin D2) 50 mcg 50 mcg PO DAILY 09/24/24 06/01/25 (2,000 unit) capsule amiodarone 200 mg tablet 200 mg PO DAILY 01/01/25 06/01/25 atorvastatin 20 mg tablet 40 mg PO DAILY 01/01/25 06/01/25 finasteride 5 mg tablet 5 mg PO DAILY 01/01/25 06/01/25 iron bisglycinate chelate See Rx Instructions PO .COMPLEX 01/01/25 06/01/25 Allergies Allergy/AdvReac Type Severity Reaction Status Date / Time No Known Drug Allergies Allergy Verified 06/22/25 14:15 Review of Systems <Art Ureña MD - Last Filed: 06/25/25 08:37> Review of Systems Narrative: GENERAL: Negative chills, fatigue, malaise, fever, sweats. HEENT: Negative sinus pain, ear pain, sore throat RESPIRATORY: Negative dyspnea, cough CARDIOVASCULAR: Negative chest pain, palpitations GASTROINTESTINAL: Positive vomiting, nausea, abdominal pain : Negative dysuria, frequency, hematuria MUSCULOSKELETAL: Negative muscle or bony pain SKIN: Negative rash, skin lesions NEUROLOGIC: Negative weakness, numbness ROS Unobtainable: All systems reviewed & are unremarkable except as noted in HPI and below Patient History <Art Ureña MD - Last Filed: 06/25/25 08:37> Medical History History of asthma Carotid artery occlusion Anesthesia complication CKD (chronic kidney disease) Nonsustained ventricular tachycardia GERD (gastroesophageal reflux disease) TIA (transient ischemic attack) Amaurosis fugax of right eye LAVINIA (obstructive sleep apnea) Pacemaker (07/09/23) Hypertension Dyslipidemia Surgical History Hx of cholecystectomy H/O: vasectomy Cataract extraction status, right eye History of open heart surgery H/O mitral valve repair Family History Father Cancer Mother Cancer Social History marital status: number of children: 2 household members: spouse lives independently: Yes occupational status: previously employed alcohol intake: current substance use type: does not use caffeine: Yes Type(s) of exercise: regular exercise frequency: 3-4 times per week duration: 45-60 minutes/day alcohol intake frequency: 0-2 drinks per day Exam <Art Ureña MD - Last Filed: 06/25/25 08:37> Narrative Exam Narrative: GENERAL: in no distress, not toxic not dyspneic HEAD: Normocephalic. EYES: Pupils equal round ENT: Mucous membranes moist. NECK: Trachea midline. CARDIOVASCULAR: Regular rate and rhythm RESPIRATORY: Clear to auscultation. Breath sounds equal bilaterally. No wheezes, rales, or rhonchi. GASTROINTESTINAL: Abdomen soft,, is distended, diffusely tender and tympanic. Bowel sounds are present. No peritoneal signs no guarding or rebound no CVA tenderness. BACK: No flank tenderness. EXTREMITIES: No gross deformities. NEURO: AOx4. Clear speech SKIN: Warm and dry PSYCH: Not anxious, is cooperative Initial Vital Signs Initial Vital Signs: Vital Signs Temperature 98 F 06/22/25 14:15 Pulse Rate 64 06/22/25 14:15 Respiratory Rate 16 06/22/25 14:15 Blood Pressure 116/77 06/22/25 14:15 Pulse Oximetry 99 06/22/25 14:15 Oxygen Delivery Method Room Air 06/22/25 14:15 <Tamika Goss DO - Last Filed: 06/22/25 23:38> Initial Vital Signs Initial Vital Signs: Vital Signs Temperature 98 F 06/22/25 14:15 Pulse Rate 64 06/22/25 14:15 Respiratory Rate 16 06/22/25 14:15 Blood Pressure 116/77 06/22/25 14:15 Pulse Oximetry 99 06/22/25 14:15 Oxygen Delivery Method Room Air 06/22/25 14:15 Course <Art Ureña MD - Last Filed: 06/25/25 08:37> Orders Ordered: Discontinued Medications Sodium Chloride (Normal Saline 0.9%) 1,000 mls @ 1,000 mls/hr IV BOLUS ONE Stop: 06/22/25 15:27 Mineral Oil (Mineral Oil 1 Each Enema) 1 each MN NOW ONE Stop: 06/22/25 17:27 Last Admin: 06/22/25 18:06 Dose: 1 each Documented By: GEORGIA Morphine Sulfate (Morphine 4 Mg/Ml Inj) 4 mg IV NOW ONE Stop: 06/22/25 14:29 Last Admin: 06/22/25 18:07 Dose: Not Given Documented By: GE[place] Ondansetron HCl (Ondansetron 4 Mg/2 Ml Inj) 4 mg IV NOW PRN PRN Reason: Nausea And Vomiting Ondansetron HCl (Ondansetron 4 Mg Odt) 4 mg PO NOW PRN PRN Reason: Nausea And Vomiting Vital Signs Vital signs: Vital Signs - 8 hr 06/22/25 17:18 06/22/25 17:19 06/22/25 17:19 Pulse Rate 66 70 Blood Pressure 168/82 H Pulse Oximetry 99 99 06/22/25 17:30 06/22/25 17:30 Pulse Rate 72 Blood Pressure 147/77 H Pulse Oximetry 98 <Tamika Goss DO - Last Filed: 06/22/25 23:38> Orders Ordered: Discontinued Medications Sodium Chloride (Normal Saline 0.9%) 1,000 mls @ 1,000 mls/hr IV BOLUS ONE Stop: 06/22/25 15:27 Mineral Oil (Mineral Oil 1 Each Enema) 1 each MN NOW ONE Stop: 06/22/25 17:27 Last Admin: 06/22/25 18:06 Dose: 1 each Documented By: GE[place] Morphine Sulfate (Morphine 4 Mg/Ml Inj) 4 mg IV NOW ONE Stop: 06/22/25 14:29 Last Admin: 06/22/25 18:07 Dose: Not Given Documented By: GE[place] Ondansetron HCl (Ondansetron 4 Mg/2 Ml Inj) 4 mg IV NOW PRN PRN Reason: Nausea And Vomiting Ondansetron HCl (Ondansetron 4 Mg Odt) 4 mg PO NOW PRN PRN Reason: Nausea And Vomiting Vital Signs Vital signs: Vital Signs - 8 hr 06/22/25 17:18 06/22/25 17:19 06/22/25 17:19 Pulse Rate 66 70 Blood Pressure 168/82 H Pulse Oximetry 99 99 06/22/25 17:30 06/22/25 17:30 Pulse Rate 72 Blood Pressure 147/77 H Pulse Oximetry 98 MDM - Abdominal Pain <Art Ureña MD - Last Filed: 06/25/25 08:37> Lab Data 06/22/25 14:25 06/22/25 14:25 Labs: Lab Results 06/22/25 Range/Units 14:25 WBC 7.0 (4.5-11.0) X10^3/uL RBC 3.80 L (4.5-5.9) X10^6/uL Hgb 11.2 L (13.5-17.5) g/dL Hct 33.8 L (41-53) % MCV 89.0 (80-100) fL MCH 29.5 (26-34) PG MCHC 33.2 (30-36) % RDW 21.3 H (11.6-14.8) % Plt Count 239 (150-400) X10^3/uL Neut % (Auto) 87.5 H (50-75) % Lymph % (Auto) 6.2 L (25-40) % Pope % (Auto) 4.1 (3-14) % Eos % (Auto) 1.6 L (2-4) % Baso % (Auto) 0.6 (0-2) % Neut # (Auto) 6100 (7833-4966) /uL Lymph # (Auto) 400 L (2866-6305) /uL Pope # (Auto) 300 (0-900) /uL Eos # (Auto) 100 (0-450) /uL Baso # (Auto) 0 (0-100) /uL RBC Morphology See below Poikilocytosis 2+ H Anisocytosis 2+ H Schistocytes 2+ H Sodium 139 (137-145) mmol/L Potassium 4.4 (3.4-5.1) mmol/L Chloride 107 (98-107) mmol/L Carbon Dioxide 26 (22-32) mmol/L BUN 38 H (9-20) mg/dL Creatinine 2.10 H (0.66-1.25) mg/dL Estimated GFR 31 L (>60) mL/min BUN/Creatinine Ratio 18.1 (6-22) Glucose 113 H (70-99) mg/dL Lactate 0.6 L (0.7-2.1) mmol/L Calcium 9.6 (8.4-10.2) mg/dL Total Bilirubin 1.7 H (0.2-1.3) mg/dL AST 43 (17-59) IU/L ALT 27 (<50) IU/L Alkaline Phosphatase 63 (38-126) U/L Total Protein 7.7 (6.3-8.2) g/dL Albumin 4.9 (3.5-5.0) g/dL Globulin 2.8 (1.7-4.1) g/dL Albumin/Globulin Ratio 1.8 (1.0-2.8) Lipase 49 (23-300) U/L Procalcitonin 0.090 (<0.5) ng/mL Imaging Data CT scan - abdomen/pelvis: Radiologist's Impression: [address] [address] [address] Scan Report Signed Patient: James Medrano III MR#: [id number] : 1940 Acct:[id number] Age/Sex: 85 / M Date of Service: 06/22/25 Loc: ED Accession Number: [id number] Procedure: CT abdomen pelvis wo con Ordering Provider: Art Ureña MD PROCEDURE: CT ABDOMEN PELVIS WO CON INDICATIONS: Abdominal pain TECHNIQUE: CT of the abdomen and pelvis was obtained without intravenous contrast. Coronal and sagittal reformats were performed. For radiation dose reduction, the following was used: automated exposure control, adjustment of mA and/or kV according to patient size. COMPARISON: [facility], CT, CT ABDOMEN RENAL PROTOCOL, 09/24/2024, 14:19. FINDINGS: Image quality: Diagnostic. Lower Chest: Cardiomegaly with partially imaged cardiac pacemaker leads. Small hiatal hernia. ABDOMEN: Liver: No contour-deforming mass. Gallbladder: Cholecystectomy. Biliary ducts: Compensatory dilation of the common bile duct. Pancreas: No ductal dilation. Spleen: Size is within normal limits. Adrenal Glands: No adrenal nodules. Kidneys and Ureters: No hydronephrosis. No contour-deforming mass. Stomach and Bowel: Normal colonic caliber, without significant wall thickening. Small bowel containing ventral hernia. No corresponding wall thickening or inflammation. Rectal stool ball 6.4 centimeter. Peritoneum: No abnormal intraperitoneal fluid. No free air. Abdominal Nodes: No retroperitoneal or mesenteric adenopathy by size criteria. Vessels: Aorta and inferior vena cava are normal in size. Severe atherosclerosis. PELVIS: Pelvic Organs: Prostatomegaly. Bladder: Incompletely distended with diffuse wall thickening. Pelvic Nodes: No enlarged lymph nodes. Miscellaneous: No inguinal hernias are seen. Bones: No aggressive osseous abnormality. Incompletely healed left posterior 10th rib fracture. IMPRESSION: 1. Small bowel containing ventral hernia without evidence of obstruction. 2. Possible fecal impaction. 3. Bladder wall thickening likely on the basis of chronic outlet obstruction. Dictated by: Refugio Braxton M.D. on 06/22/2025 at 15:55 Approved by: Refugio Braxton M.D. on 06/22/2025 at 16:03 [facility] Narrative Medical decision making narrative: Patient brought here with for complaints of generalized abdominal pain mostly upper half crampy distended discomfort. Ongoing 2 days. Last bowel movement 2 days ago. Had 1 episode of nonbloody emesis. Has not had any flatus in the past 2 days. History of cholecystectomy. History of reducible periumbilical hernia. No urinary complaints. Patient does have history of atrial fibrillation with ablation and Watchman. MDM After history and exam, CBC CMP lipase CT abdomen pelvis lactic acid procalcitonin EKG Differential considered: Includes but not limited to bowel obstruction ischemic bowel colitis pancreatitis choledocholithiasis Medical records reviewed: No recent visit for this complaint Lab Test results independently reviewed as above. Pertinent findings: WBC 7.0 hemoglobin 11 sodium 139 potassium 4.4 BUN 38 creatinine 2.1 GFR 31 glucose 113 lactate 0.6 lipase 49 procalcitonin 0.09 Independently reviewed EKG sinus rhythm rate [address]-elevation or depression. PVC present Imaging studies independently reviewed: CT abdomen pelvis fecal impaction Consultations: Re-evaluations: Discussion: 4:19 p.m.. Niranjan: Sign out to Dr Goss, patient will need enemas/laxatives. Patient does show fecal impaction on CT imaging. Diagnosis: <Tamika Goss, DO - Last Filed: 06/22/25 23:38> Lab Data Labs: Lab Results 06/22/25 Range/Units 14:25 WBC 7.0 (4.5-11.0) X10^3/uL RBC 3.80 L (4.5-5.9) X10^6/uL Hgb 11.2 L (13.5-17.5) g/dL Hct 33.8 L (41-53) % MCV 89.0 (80-100) fL MCH 29.5 (26-34) PG MCHC 33.2 (30-36) % RDW 21.3 H (11.6-14.8) % Plt Count 239 (150-400) X10^3/uL Neut % (Auto) 87.5 H (50-75) % Lymph % (Auto) 6.2 L (25-40) % Pope % (Auto) 4.1 (3-14) % Eos % (Auto) 1.6 L (2-4) % Baso % (Auto) 0.6 (0-2) % Neut # (Auto) 6100 (6731-6894) /uL Lymph # (Auto) 400 L (6457-3381) /uL Pope # (Auto) 300 (0-900) /uL Eos # (Auto) 100 (0-450) /uL Baso # (Auto) 0 (0-100) /uL RBC Morphology See below Poikilocytosis 2+ H Anisocytosis 2+ H Schistocytes 2+ H Sodium 139 (137-145) mmol/L Potassium 4.4 (3.4-5.1) mmol/L Chloride 107 (98-107) mmol/L Carbon Dioxide 26 (22-32) mmol/L BUN 38 H (9-20) mg/dL Creatinine 2.10 H (0.66-1.25) mg/dL Estimated GFR 31 L (>60) mL/min BUN/Creatinine Ratio 18.1 (6-22) Glucose 113 H (70-99) mg/dL Lactate 0.6 L (0.7-2.1) mmol/L Calcium 9.6 (8.4-10.2) mg/dL Total Bilirubin 1.7 H (0.2-1.3) mg/dL AST 43 (17-59) IU/L ALT 27 (<50) IU/L Alkaline Phosphatase 63 (38-126) U/L Total Protein 7.7 (6.3-8.2) g/dL Albumin 4.9 (3.5-5.0) g/dL Globulin 2.8 (1.7-4.1) g/dL Albumin/Globulin Ratio 1.8 (1.0-2.8) Lipase 49 (23-300) U/L Procalcitonin 0.090 (<0.5) ng/mL MDM Narrative Medical decision making narrative: Patient brought here with for complaints of generalized abdominal pain mostly upper half crampy distended discomfort. Ongoing 2 days. Last bowel movement 2 days ago. Had 1 episode of nonbloody emesis. Has not had any flatus in the past 2 days. History of cholecystectomy. History of reducible periumbilical hernia. No urinary complaints. Patient does have history of atrial fibrillation with ablation and Watchman. MDM After history and exam, CBC CMP lipase CT abdomen pelvis lactic acid procalcitonin EKG Differential considered: Includes but not limited to bowel obstruction ischemic bowel colitis pancreatitis choledocholithiasis Medical records reviewed: No recent visit for this complaint Lab Test results independently reviewed as above. Pertinent findings: WBC 7.0 hemoglobin 11 sodium 139 potassium 4.4 BUN 38 creatinine 2.1 GFR 31 glucose 113 lactate 0.6 lipase 49 procalcitonin 0.09 Independently reviewed EKG sinus rhythm rate [address]-elevation or depression. PVC present Imaging studies independently reviewed: CT abdomen pelvis fecal impaction Consultations: Re-evaluations: Discussion: 4:19 p.m.. Niranjan: Sign out to Dr Goss, patient will need enemas/laxatives. Patient does show fecal impaction on CT imaging. Diagnosis: 06/22/25 Dr. Goss: Patient signed out to myself patient presented for lower abdominal pain for 2 days patient's labs, EKG and imaging were reviewed patient shows fecal impaction, small bowel containing ventral hernia without evidence of obstruction and bladder wall thickening likely on the basis of chronic outlet obstruction. Labs show hemoglobin 11.2 consistent with priors maybe even slightly improved normal white count, normal platelets. Chemistries show a creatinine of 2.1 this is improved from patient's recent which was 2.77 before that was 2.15 and September 2024. Electrolytes are appropriate BUN 38 lactate 2.6 bilirubin is 1.7 this is improved from prior 2.4. Pro count 0.09. Patient did not give urine sample does not feel like he can give 1 currently he just urinated. We reviewed all of his findings he notes he has chronic constipation has not taken his MiraLax he only takes it when he feels like he needs it. He feels comfortable with discharge home he does note he has some chronic issues with urinary retention and that his CT findings are consistent. He does have a small hernia on exam which is easily reducible and nontender for myself. Patient plans to restart his MiraLax at home but is open to having an enema here in the department. No output after enema. Patient plans to d/c home and restart his Miralax. Discharge Plan Departure Patient Disposition: Home Clinical Impression: Abdominal pain Qualifiers: Abdominal location: unspecified location Qualified Code(s): R10.9 - Unspecified abdominal pain Constipation Qualifiers: Constipation type: unspecified constipation type Qualified Code(s): K59.00 - Constipation, unspecified Instructions: DI for Constipation Activity Restrictions/Additional Instructions: Please follow up with your physician. Your workup today shows ventral hernia with some bowel signs obstruction, there some thickening of the bladder wall which could be consistent with chronic outlet obstruction but she would be shared your physician there is also stool present consistent with constipation. Take your home MiraLax. You can increase this to once daily or every other day to help your stools be more regular. If you develop diarrhea decrease in the frequency of your MiraLax. Please return if you develop new or worsening abdominal back or flank pain, fevers, vomiting, new black or bloody stools, inability to urinate or other new or concerning changes. Prescriptions: No Action Ojjaara 200 mg tablet PO DAILY atorvastatin 20 mg tablet 40 mg PO DAILY multivitamin Tablet 1 tab PO DAILY aspirin [Adult Low Dose Aspirin] 81 mg tablet,delayed release (DR/EC) 81 mg PO DAILY amiodarone 200 mg tablet 200 mg PO DAILY iron bisglycinate chelate 28 mg iron capsule See Rx Instructions PO .COMPLEX Rx Instructions: 25 MG orally 3X/WEEK finasteride 5 mg tablet 5 mg PO DAILY ergocalciferol (vitamin D2) 50 mcg (2,000 unit) capsule 50 mcg PO DAILY Referrals: Latesha Clayton MD [Primary Care Provider, Internal Medicine] Stand Alone Forms: Patient Portal/API
[2025-06-22 14:46] LABS: Hematocrit 33.8 % (41-53); Hemoglobin 11.2 g/dL (13.5-17.5); Lymphocytes Absolute Auto 400 /uL (1100-4500); Mean Corpuscular HGB Conc 33.2 % (30-36); Mean Corpuscular Hemoglobin 29.5 PG (26-34); Mean Corpuscular Volume 89.0 fL (80-100); Platelet Count 239 X10^3/uL (150-400)
[2025-06-22 14:50] LABS: Alanine Aminotransferase 27 IU/L (<50); Albumin 4.9 g/dL (3.5-5.0); Albumin Globulin Ratio 1.8 (1.0-2.8); Alkaline Phosphatase 63 U/L (38-126); Blood Urea Nitrogen 38 mg/dL (9-20); Calcium 9.6 mg/dL (8.4-10.2); Carbon Dioxide 26 mmol/L (22-32); Chloride 107 mmol/L (98-107); Estimated Glomerular Filt Rate 31 mL/min (>60); Globulin 2.8 g/dL (1.7-4.1); Glucose 113 mg/dL (70-99); HEMOLYSIS < 15 (0-50); Lactate (Lactic Acid) 0.6 mmol/L (0.7-2.1); Lipase 49 U/L (23-300); Potassium 4.4 mmol/L (3.4-5.1); Sodium 139 mmol/L (137-145); Total Protein 7.7 g/dL (6.3-8.2)
[2025-06-22 14:51] LABS: Add Manual Diff / Slide Review SLIDE REVIEW
[2025-06-22 15:09] LABS: Anisocytosis 2+; Schistocytes 2+
[2025-06-22 15:10] LABS: Poikilocytosis 2+
[2025-06-22 15:24] LABS: Procalcitonin 0.090 ng/mL (<0.5)
[2025-06-22 17:18] VITALS: PULSE 66; O2SAT 99
[2025-06-22 17:19] VITALS: BP 168/82; PULSE 70; O2SAT 99
[2025-06-22 17:30] VITALS: BP 147/77; PULSE 72; O2SAT 98
[2025-06-22] MEDS: MINERAL OIL 1 EACH ENEMA PR (18:06)
== END 2025-06-22 18:40 | disposition home or self-care (01) ==
PROVIDERS: Emergency Medicine; Emergency Provider Emergency Medicine; PCP Internal Medicine
DX: R10.9 Unspecified abdominal pain (principal); K59.00 Constipation, unspecified
CPT/HCPCS: 36415; 74176; 80053; 83605; 83690; 84145; 85025; 93005; 93010; 99284